=== PATIENT | male | born 1945 | race Caucasian/White ===

== ENCOUNTER → 2016-12-04 | Outpatient (REF) | payer MEDICARE, OTHER ==
[~2016-12-04] MED LIST: ASPI81TAEC PO; CALC1TAB30 PO; KEPP500T6 PO; PRED50TA PO; RAPA8CAP PO
== END ==
LOC: M LAB REF 17:10
PROVIDERS: ATTEND Urology
DX: N40.1 Benign prostatic hyperplasia with lower urinary tract symptoms (principal)

== ENCOUNTER → 2016-12-27 | Outpatient (CLI) | payer MEDICARE, OTHER | LOC: M LAB 13:23 | PROVIDERS: ATTEND Urology | DX: R35.0 Frequency of micturition (principal) ==

== ENCOUNTER → 2017-01-03 | Outpatient (REF) | payer MEDICARE, OTHER ==
[2017-01-03 17:45] LABS: ALBUMIN 3.4 GM/DL (3.2-5.2); ALKALINE PHOSPHATASE 56 U/L (45-117); ALT/SGPT 21 U/L (12-78); ANION GAP 6 MEQ/L (8-16); AST/SGOT 18 U/L (15-37); BILIRUBIN,TOTAL 0.5 MG/DL (0.2-1.0); BLOOD UREA NITROGEN 24 MG/DL (7-18); CALCIUM LEVEL 8.8 MG/DL (8.8-10.2); CARBON DIOXIDE LEVEL 31 MEQ/L (21-32); CHLORIDE LEVEL 108 MEQ/L (98-107); CHOLESTEROL LEVEL 172 MG/DL (<200); CREATININE FOR GFR 1.22 MG/DL (0.70-1.30); GLOMERULAR FILTRATION RATE > 60.0 (>49); GLUCOSE, FASTING 101 MG/DL (80-110); POTASSIUM SERUM 4.5 MEQ/L (3.5-5.1); SODIUM LEVEL 145 MEQ/L (136-145); TOTAL PROTEIN 6.8 GM/DL (6.4-8.2); TRIGLYCERIDES LEVEL 164 MG/DL (<150)
[2017-01-03 18:23] LABS: BASO # 0.1 K/mm3 (0.0-0.2); BASO % 1.7 % (0.0-1.0); EOS # 0.2 K/mm3 (0.0-0.50); EOS % 3.1 % (0.0-3.0); LARGE UNSTAINED CELL # 0.1 K/mm3 (0.0-0.4); LARGE UNSTAINED CELL % 1.3 % (0.0-4.0); LYMPH # 1.2 K/mm3 (1.5-4.5); LYMPH % 19.3 % (24.0-44.0); MEAN CORPUSCULAR HEMOGLOBIN 29.4 pg (27.0-33.0); MEAN CORPUSCULAR HGB CONC 32.8 g/dl (32.0-36.5); MEAN CORPUSCULAR VOLUME 89.7 fl (80.0-96.0); MONO # 0.5 K/mm3 (0.0-0.8); MONO % 8.3 % (0.0-5.0); NEUTROPHILS # 3.8 K/mm3 (1.8-7.7); NEUTROPHILS % 66.2 % (36.0-66.0); PLATELET COUNT, AUTOMATED 197 k/mm3 (150-450); RED CELL DISTRIBUTION WIDTH 13.4 % (11.5-14.5); WHITE BLOOD COUNT 5.7 K/mm3 (4.0-10.0)
== END ==
LOC: M LAB REF 16:19
PROVIDERS: ATTEND Emergency Medicine
DX: R73.01 Impaired fasting glucose (principal); E55.9 Vitamin D deficiency, unspecified; I69.00 Unspecified sequelae of nontraumatic subarachnoid hemorrhage

== ENCOUNTER → 2017-02-19 | Outpatient (REF) | payer MEDICARE, OTHER ==
[2017-02-19 17:29] LABS: BLOOD UREA NITROGEN 28 MG/DL (7-18); CREATININE FOR GFR 1.11 MG/DL (0.70-1.30); GLOMERULAR FILTRATION RATE > 60.0 (>49)
== END ==
LOC: M LAB REF 16:21
PROVIDERS: ATTEND Neurological Surgery
DX: I67.1 Cerebral aneurysm, nonruptured (principal)

== ENCOUNTER 2017-04-04 20:06 | Emergency (ER) | payer MEDICARE, OTHER ==
[~2017-04-04] VITALS: Ht 182.9 cm; Wt 103.5 kg
[~2017-04-04 20:06] MED LIST changes: +KEPP1TAB PO; -KEPP500T6 PO
[2017-04-04 20:07] VITALS: BP 154/88
[2017-04-04 21:09] LABS: INR 1.03
[2017-04-04 21:17] LABS: MEAN CORPUSCULAR HEMOGLOBIN 30.7 pg (27.0-33.0); MEAN CORPUSCULAR VOLUME 90.3 fl (80.0-96.0); RED CELL DISTRIBUTION WIDTH 13.7 % (11.5-14.5); WHITE BLOOD COUNT 7.5 K/mm3 (4.0-10.0)
[2017-04-04 21:28] LABS: ANION GAP 7 MEQ/L (8-16); BLOOD UREA NITROGEN 32 MG/DL (7-18); CALCIUM LEVEL 8.7 MG/DL (8.8-10.2); CARBON DIOXIDE LEVEL 29 MEQ/L (21-32); CHLORIDE LEVEL 109 MEQ/L (98-107); CREATININE FOR GFR 1.09 MG/DL (0.70-1.30); GLOMERULAR FILTRATION RATE > 60.0 (>49); GLUCOSE, FASTING 111 MG/DL (80-110); POTASSIUM SERUM 3.6 MEQ/L (3.5-5.1); SODIUM LEVEL 145 MEQ/L (136-145)
[2017-04-04 21:35] LABS: BANDS 1 % (< 11); EOSINOPHILS 2 % (0-5)
== END 2017-04-04 22:36 | disposition home or self-care (01) ==
LOC: M ED 20:06
DX: S20.229A Contusion of unspecified back wall of thorax, initial encounter (principal); S40.021A Contusion of right upper arm, initial encounter; S40.012A Contusion of left shoulder, initial encounter; X58.XXXA Exposure to other specified factors, initial encounter; Y92.89 Other specified places as the place of occurrence of the external cause; Y93.89 Activity, other specified; Y99.9 Unspecified external cause status

== ENCOUNTER 2017-08-17 13:10 | Emergency (ER) | payer OTHER, MEDICARE ==
[2017-08-17] MEDS ORDERED: ASPI1TAB PO (13:23)
--- NOTE | 2017-08-17 14:11 | REP ---
CT HEAD WITHOUT CONTRAST: HISTORY: Trauma. COMPARISON: 09/07/2009. The patient is status post right frontotemporal parietal cranioplasty. 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 Areas of decreased attenuation are present in the right frontoparietal and left parietal lobes. There is dilatation of the overlying cortical sulci and bodies of the lateral ventricles. This represents encephalomalacia. There is no intraparenchymal hemorrhage or mass. A shunt is present in the left lateral ventricle. There is dilatation of the ventricles and overlying cortical sulci consistent with minimal volume loss. An acute subdural hematoma 6 mm in width is present over the left cerebral hemisphere. A small amount of subarachnoid hemorrhage is present. There is mass effect with very minimal midline shift to the right. There is no fracture. The visualized sinuses are clear. IMPRESSION: 1. 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 2. A shunt is present in the left lateral ventricle. There is no hydrocephalus. 3. There is an acute 6 mm subdural hematoma over the left cerebral hemisphere with minimal midline shift to the right. 4. Small amount of subarachnoid hemorrhage. Results were called to Dr. Gamez at 1:45 pm this date. Signed by Colby Carson MD 08/17/2017 02:14 P
--- NOTE | 2017-08-17 14:16 | REP ---
CT CERVICAL SPINE WITHOUT CONTRAST: HISTORY: Trauma. COMPARISON: 09/07/2009. There is no acute fracture or subluxation. Disc bulges are present at the C3-4 through C5-6 levels. There is minimal narrowing of the spinal canal. Uncinate process and/or facet hypertrophy are present at the C3-4 through C5-6 levels. These findings produce minimal narrowing of neural foramina. The C5-6 intervertebral disc is decreased in height consistent with disc degeneration. IMPRESSION: 1. There is no acute fracture or subluxation. 2. There is cervical spondylosis at the C3-4 through C5-6 levels. Signed by Colby Carson MD 08/17/2017 02:19 P
[2017-08-17 14:19] LABS: BASO # 0.1 10^3/uL (0.0-0.2); BASO % 0.9 % (0.0-1.0); EOS # 0.2 10^3/uL (0.0-0.50); EOS % 2.5 % (0.0-3.0); IMMATURE GRANULOCYTE % 0.5 % (0-0); MEAN CORPUSCULAR HEMOGLOBIN 29.7 pg (27.0-33.0); MEAN CORPUSCULAR HGB CONC 33.3 g/dl (32.0-36.5); MEAN CORPUSCULAR VOLUME 89.1 fl (80.0-96.0); MONO # 0.6 10^3/uL (0.0-0.8); MONO % 8.6 % (0.0-5.0); NEUTROPHILS # 4.6 10^3/uL (1.8-7.7); NEUTROPHILS % 72.5 % (36.0-66.0); PLATELET COUNT, AUTOMATED 218 10^3/uL (150-450); RED CELL DISTRIBUTION WIDTH 13.5 % (11.5-14.5); WHITE BLOOD COUNT 6.4 10^3/uL (4.0-10.0)
[2017-08-17 14:28] LABS: INR 1.05
[2017-08-17 14:40] LABS: ANION GAP 6 MEQ/L (8-16); BLOOD UREA NITROGEN 25 MG/DL (7-18); CALCIUM LEVEL 8.9 MG/DL (8.8-10.2); CARBON DIOXIDE LEVEL 33 MEQ/L (21-32); CHLORIDE LEVEL 106 MEQ/L (98-107); CREATININE FOR GFR 0.97 MG/DL (0.70-1.30); GLOMERULAR FILTRATION RATE > 60.0 (>49); GLUCOSE, FASTING 88 MG/DL (80-110); SODIUM LEVEL 145 MEQ/L (136-145)
--- NOTE | 2017-08-17 14:48 | REP ---
Clinical: Trauma . Comparison: 07/24/2016 . Findings: The mediastinum and cardiac silhouette are stable and within normal limits for portable technique. The lung cardenas are clear without acute consolidation, effusion, or pneumothorax. Skeletal structures are intact. Right-sided ventriculoperitoneal shunt identified. Impression: Limited portable examination. No acute cardiopulmonary process appreciated. Signed by Jac Estes MD 08/17/2017 02:40 P
[2017-08-17 14:55] VITALS: BP 174/92
--- NOTE | 2017-08-19 21:11 | ECGEPIP ---
Stationary ECG Study [facility] - ED Test Date: 2017-08-17 Pat Name: HOLLY ASHLEY Department: Room: - Gender: M [employer] Supervisor: pavel : 1945 Requested By: Benigno Chowdhury Order Number: [id number] Reading MD: Slime Shetty Measurements Intervals [place] Rate: 58 P: 0 IA: 231 QRS: -27 QRSD: 105 T: 8 QT: 441 QTc: 436 Interpretive Statements SINUS BRADYCARDIA WITH FIRST DEGREE AV BLOCK PROBABLE - BASELINE ARTIFACT LIMITS INTERPRETATION BORDERLINE LEFT AXIS DEVIATION MODERATE VOLTAGE CRITERIA FOR LVH, CONSIDER NORMAL VARIANT NO PRIOR FOR COMPARISON Electronically Signed On 08-19-2017 21:11:30 EST by Slime Shetty
== END 2017-08-17 15:01 | disposition short-term general hospital (02) ==
LOC: EDBD 13:10 → M ED 13:10
DX: S06.6X0A Traumatic subarachnoid hemorrhage without loss of consciousness, initial encounter (principal); S06.5X0A Traumatic subdural hemorrhage without loss of consciousness, initial encounter; V49.59XA Passenger injured in collision with other motor vehicles in traffic accident, initial encounter; Y92.410 Unspecified street and highway as the place of occurrence of the external cause; Y93.89 Activity, other specified; Y99.8 Other external cause status; R56.9 Unspecified convulsions; D69.3 Immune thrombocytopenic purpura; Z79.899 Other long term (current) drug therapy; Z79.82 Long term (current) use of aspirin

== ENCOUNTER → 2017-08-30 | Outpatient (RCR) | payer OTHER ==
[~2017-08-30] MED LIST changes: +ASPI1TAB PO
== END ==
LOC: M PT 08-27 11:36
PROVIDERS: ATTEND Emergency Medicine
DX: Z51.89 Encounter for other specified aftercare (principal); M62.81 Muscle weakness (generalized); R26.89 Other abnormalities of gait and mobility

== ENCOUNTER 2017-09-03 14:13 | Outpatient (RCR) | payer OTHER | END 2017-09-30 | LOC: M PT 14:13 → M OT 09-06 13:00 → M PT 09-17 14:14 → M OT 09-19 13:30 | DX: Z51.89 Encounter for other specified aftercare (principal); R26.9 Unspecified abnormalities of gait and mobility | CPT/HCPCS: 97110 ==

== ENCOUNTER 2017-10-03 09:48 | Outpatient (RCR) | payer OTHER | END 2017-10-31 | LOC: M OT 09:48 → M PT 10-15 09:50 → M OT 10-18 10:00 → M PT 10-22 09:49 → M OT 10-24 10:00 → M PT 10-25 10:00 → M OT 10-31 09:50 → M PT 10-15 09:50 → M OT 10-18 10:00 → M PT 10-22 09:49 → M OT 10-24 10:00 → M PT 10-25 10:00 → M OT 10-31 09:50 | DX: Z51.89 Encounter for other specified aftercare (principal); R53.1 Weakness ==

== ENCOUNTER 2017-11-01 09:46 | Outpatient (RCR) | payer OTHER | END 2017-11-28 | LOC: M PT 09:46 → M OT 11-07 09:46 → M PT 11-21 09:23 → M OT 11-07 09:46 → M PT 11-21 09:23 | DX: Z51.89 Encounter for other specified aftercare (principal); R26.81 Unsteadiness on feet | CPT/HCPCS: 97110 ==

== ENCOUNTER 2017-11-29 08:56 | Outpatient (RCR) | payer OTHER | END 2017-12-29 | LOC: M PT 12-03 10:24 | DX: Z51.89 Encounter for other specified aftercare (principal); R26.81 Unsteadiness on feet | CPT/HCPCS: 97010 ==

== ENCOUNTER 2017-12-31 10:36 | Outpatient (RCR) | payer OTHER | END 2018-01-28 | LOC: M PT 10:36 | DX: Z51.89 Encounter for other specified aftercare (principal); R26.81 Unsteadiness on feet | CPT/HCPCS: 97112 ==

== ENCOUNTER → 2018-01-21 | Outpatient (CLI) | payer MEDICARE, OTHER ==
[2018-01-21 09:09] LABS: ANION GAP 6 MEQ/L (8-16); BLOOD UREA NITROGEN 28 MG/DL (7-18); CALCIUM LEVEL 8.5 MG/DL (8.8-10.2); CARBON DIOXIDE LEVEL 31 MEQ/L (21-32); CHLORIDE LEVEL 110 MEQ/L (98-107); CHOLESTEROL LEVEL 161 MG/DL (<200); CHOLESTEROL RISK RATIO 3.285 (<5); CREATININE FOR GFR 1.02 MG/DL (0.70-1.30); GLOMERULAR FILTRATION RATE > 60.0 (>42); GLUCOSE, FASTING 80 MG/DL (70-100); HDL CHOLESTEROL 49 MG/DL (>40); LDL CHOLESTEROL 88.6 MG/DL (<100); NON-HDL-C 112 MG/DL; SODIUM LEVEL 147 MEQ/L (136-145); TRIGLYCERIDES LEVEL 117 MG/DL (<150)
[2018-01-21 11:02] LABS: TOTAL 25(OH) VITAMIN D 30.5 NG/ML (30.0-100.0)
[2018-01-21 11:46] LABS: ESTIMATED AVERAGE GLUCOSE 103 MG/DL (60-110); HEMOGLOBIN A1c 5.2 %
== END ==
LOC: M LAB 08:21
DX: R73.03 Prediabetes (principal); E55.9 Vitamin D deficiency, unspecified; Z79.82 Long term (current) use of aspirin; Z79.899 Other long term (current) drug therapy
CPT/HCPCS: 83036

== ENCOUNTER 2018-01-29 09:44 | Outpatient (RCR) | payer OTHER | END 2018-02-28 | LOC: M PT 02-04 09:15 | DX: Z51.89 Encounter for other specified aftercare (principal); R26.81 Unsteadiness on feet; R53.1 Weakness | CPT/HCPCS: 97110 ==

== ENCOUNTER → 2018-03-18 | Outpatient (CLI) | payer MEDICARE, OTHER ==
[2018-03-18 14:42] LABS: PROSTATIC SPECIFIC AG MONITOR 2.36 NG/ML (< 4.0)
== END ==
LOC: M LAB 13:34
DX: N40.1 Benign prostatic hyperplasia with lower urinary tract symptoms (principal)
CPT/HCPCS: 84153

== ENCOUNTER → 2018-05-02 | Outpatient (CLI) | payer MEDICARE, OTHER ==
[2018-05-02 12:22] LABS: BASO # 0.1 10^3/uL (0.0-0.2); BASO % 0.9 % (0.0-1.0); EOS # 0.2 10^3/uL (0.0-0.50); EOS % 2.4 % (0.0-3.0); HEMATOCRIT 45.3 % (42.0-52.0); IMMATURE GRANULOCYTE % 0.4 % (0-3.0); LYMPH # 1.6 10^3/uL (1.5-4.5); LYMPH % 20.3 % (24.0-44.0); MEAN CORPUSCULAR HGB CONC 33.1 g/dl (32.0-36.5); MEAN CORPUSCULAR VOLUME 90.6 fl (80.0-96.0); MONO # 0.9 10^3/uL (0.0-0.8); MONO % 11.1 % (0.0-5.0); NEUTROPHILS # 5.2 10^3/uL (1.8-7.7); NEUTROPHILS % 64.9 % (36.0-66.0); PLATELET COUNT, AUTOMATED 239 10^3/uL (150-450); RED CELL DISTRIBUTION WIDTH 13.5 % (11.5-14.5); WHITE BLOOD COUNT 7.9 10^3/uL (4.0-10.0)
== END ==
LOC: M LAB 11:14
DX: S06.5X1D Traumatic subdural hemorrhage with loss of consciousness of 30 minutes or less, subsequent encounter (principal); X58.XXXA Exposure to other specified factors, initial encounter; Y92.89 Other specified places as the place of occurrence of the external cause
CPT/HCPCS: 85025

== ENCOUNTER → 2019-02-21 | Outpatient (CLI) | payer MEDICARE, OTHER ==
[~2019-02-21] MED LIST changes: -ASPI1TAB PO; +ASPI81TA26 PO; -RAPA8CAP PO; +RAPA8CAP4 PO
[2019-02-21 12:05] LABS: BLOOD UREA NITROGEN 20 MG/DL (7-18); CREATININE FOR GFR 0.96 MG/DL (0.70-1.30); GLOMERULAR FILTRATION RATE > 60.0 (>42)
== END ==
LOC: M LAB 11:09
PROVIDERS: ATTEND Neurological Surgery
DX: G91.0 Communicating hydrocephalus (principal); I67.1 Cerebral aneurysm, nonruptured

== ENCOUNTER → 2019-03-28 | Outpatient (CLI) | payer MEDICARE, OTHER | LOC: M LRY 08:44 | PROVIDERS: ATTEND Urology | DX: N40.1 Benign prostatic hyperplasia with lower urinary tract symptoms (principal) ==

== ENCOUNTER → 2019-06-30 | Outpatient (CLI) | payer MEDICARE, OTHER ==
[2019-06-30 16:48] LABS: BASO # 0.1 10^3/uL (0.0-0.2); EOS # 0.3 10^3/uL (0.0-0.5); EOS % 3.3 % (0.0-3.0); HEMATOCRIT 47.5 % (42.0-52.0); HEMOGLOBIN 15.4 g/dl (13.5-17.5); LYMPH # 1.7 10^3/uL (1.5-5.0); LYMPH % 20.9 % (24.0-44.0); MEAN CORPUSCULAR HEMOGLOBIN 29.7 pg (27.0-33.0); MEAN CORPUSCULAR HGB CONC 32.4 g/dl (32.0-36.5); MEAN CORPUSCULAR VOLUME 91.5 fl (80.0-96.0); MONO # 0.6 10^3/uL (0.0-0.8); MONO % 7.6 % (0.0-5.0); NEUTROPHILS # 5.3 10^3/uL (1.5-8.5); NEUTROPHILS % 66.9 % (36.0-66.0); PLATELET COUNT, AUTOMATED 263 10^3/uL (150-450); RED BLOOD COUNT 5.19 10^6/uL (4.30-6.10); WHITE BLOOD COUNT 7.9 10^3/uL (4.0-10.0)
[2019-06-30 17:05] LABS: ALBUMIN 3.4 GM/DL (3.2-5.2); ALT/SGPT 20 U/L (12-78); BILIRUBIN,TOTAL 0.2 MG/DL (0.2-1.0); BLOOD UREA NITROGEN 24 MG/DL (7-18); CALCIUM LEVEL 8.7 MG/DL (8.8-10.2); CARBON DIOXIDE LEVEL 33 MEQ/L (21-32); CHLORIDE LEVEL 106 MEQ/L (98-107); CREATININE FOR GFR 1.09 MG/DL (0.70-1.30); GLOMERULAR FILTRATION RATE > 60.0 (>42); GLUCOSE, FASTING 144 MG/DL (70-100); POTASSIUM SERUM 3.9 MEQ/L (3.5-5.1); SODIUM LEVEL 144 MEQ/L (136-145); TOTAL PROTEIN 7.1 GM/DL (6.4-8.2)
== END ==
LOC: M LRY 13:51
PROVIDERS: ATTEND Family Medicine
DX: K62.5 Hemorrhage of anus and rectum (principal)

== ENCOUNTER → 2020-04-06 | Outpatient (CLI) | payer MEDICARE, OTHER ==
[2020-04-09 00:07] LABS: PSA TOTAL 1.6 ng/mL (0.0-4.0)
== END ==
LOC: M LRY 15:35
PROVIDERS: ATTEND Nurse Practitioner Family
DX: N40.1 Benign prostatic hyperplasia with lower urinary tract symptoms (principal)

== ENCOUNTER → 2020-07-06 | Outpatient (CLI) | payer MEDICARE, OTHER ==
[2020-07-06 12:58] LABS: CREATININE FOR GFR 1.09 MG/DL (0.70-1.30); GLOMERULAR FILTRATION RATE > 60.0 (>42)
== END ==
LOC: M WUC 09:02
PROVIDERS: ATTEND Physician Assistant Medical
DX: R26.81 Unsteadiness on feet (principal); I67.1 Cerebral aneurysm, nonruptured; G91.0 Communicating hydrocephalus; R42 Dizziness and giddiness; Z98.2 Presence of cerebrospinal fluid drainage device; Z86.79 Personal history of other diseases of the circulatory system

== ENCOUNTER → 2021-04-21 | Outpatient (CLI) | payer MEDICARE, OTHER ==
[~2021-04-21] MED LIST changes: +ASPI-569 PO; -ASPI81TAEC PO
== END ==
LOC: M WUC 14:13
PROVIDERS: ATTEND Urology
DX: N40.1 Benign prostatic hyperplasia with lower urinary tract symptoms (principal)

== ENCOUNTER → 2021-06-03 | Outpatient (CLI) | payer MEDICARE, OTHER ==
[~2021-06-03] MED LIST changes: +BACL10TA2 PO; +CITA20TA7 PO
== END ==
LOC: M LABSMTC 09:47
PROVIDERS: ATTEND Anesthesiology
DX: Z01.812 Encounter for preprocedural laboratory examination (principal); Z20.822 Contact with and (suspected) exposure to COVID-19

== ENCOUNTER 2021-06-08 12:39 | Day surgery (SDC) | payer MEDICARE, OTHER ==
[~2021-06-08] VITALS: Ht 180.3 cm; Wt 113.4 kg
[~2021-06-08 12:39] MED LIST changes: +LIDOCAINE 2% 100MG/5ML SDV (FOR ANES.) As Ordered ONE; +NS 1,000 ML IV ONE; +propofoL 200 MG/20 ML VIAL As Ordered ONE
--- NOTE | 2021-06-08 14:58 | ROOR ---
Patient Name: Addison Ontiveros Procedure Date: 06/08/2021 1:57 PM Date of : 1945 Age: 75 Room: [facility] Gender: Male Note Status: Finalized Procedure: Colonoscopy Indications: Screening for colorectal malignant neoplasm Providers: Marvin Mceknzie MD Referring MD: Stacie Perkins MD Requesting Provider: Medicines: Monitored Anesthesia Care Complications: No immediate complications. Procedure: Pre-Anesthesia Assessment: - Prior to the procedure, a History and Physical was performed, and patient medications and allergies were reviewed. The patient is competent. The risks and benefits of the procedure and the sedation options and risks were discussed with the patient. All questions were answered and informed consent was obtained. Patient identification and proposed procedure were verified by the physician, the nurse and the anesthesiologist in the endoscopy suite. Mental Status Examination: alert and oriented. Airway Examination: normal oropharyngeal airway and neck mobility. Respiratory Examination: clear to auscultation. CV Examination: normal. Prophylactic Antibiotics: The patient does not require prophylactic antibiotics. Prior Anticoagulants: The patient has taken no previous anticoagulant or antiplatelet agents. ASA Grade Assessment: III - A patient with severe systemic disease. After reviewing the risks and benefits, the patient was deemed in satisfactory condition to undergo the procedure. The anesthesia plan was to use monitored anesthesia care (MAC). Immediately prior to administration of medications, the patient was re-assessed for adequacy to receive sedatives. The heart rate, respiratory rate, oxygen saturations, blood pressure, adequacy of pulmonary ventilation, and response to care were monitored throughout the procedure. The physical status of the patient was re-assessed after the procedure. The Colonoscope was introduced through the anus and advanced to the cecum, identified by appendiceal orifice and ileocecal valve. The colonoscopy was technically difficult and complex due to significant looping. Successful completion of the procedure was aided by applying abdominal pressure. The patient tolerated the procedure fairly well. The quality of the bowel preparation was good. Findings: The perianal and digital rectal examinations were normal. A 5 mm polyp was found in the hepatic flexure. The polyp was sessile. The polyp was removed with a cold snare. Resection and retrieval were complete. Estimated blood loss was minimal. Estimated blood loss was minimal. A 10 mm polyp was found in the ileocecal valve. The polyp was semi-pedunculated. The polyp was removed with a hot snare. Polyp resection was incomplete. The resected tissue was retrieved. Estimated blood loss was minimal. Four sessile polyps were found in the transverse colon. The polyps were 2 to 5 mm in size. These polyps were removed with a hot snare. Resection and retrieval were complete. The retroflexed view of the distal rectum and anal verge was normal and showed no anal or rectal abnormalities. Impression: - One 5 mm polyp at the hepatic flexure, removed with a cold snare. Resected and retrieved. - One 10 mm polyp at the ileocecal valve, removed with a hot snare. Incomplete resection. Resected tissue retrieved. - Four 2 to 5 mm polyps in the transverse colon, removed with a hot snare. Resected and retrieved. - The distal rectum and anal verge are normal on retroflexion view. Recommendation: - Discharge patient to home (ambulatory). Procedure Code(s): --- Professional --- 03929, Colonoscopy, flexible; with removal of tumor(s), polyp(s), or other lesion(s) by snare technique Diagnosis Code(s): --- Professional --- K63.5, Polyp of colon Z12.11, Encounter for screening for malignant neoplasm of colon CPT copyright 2019 [employer]. All rights reserved. The codes documented in this report are preliminary and upon physician coder review may be revised to meet current compliance requirements. Marvin Mckenzie MD Marvin Mckenzie MD 06/08/2021 2:58:12 PM Electronically signed by Marvin Mckenzie MD Number of Addenda: 0 Note Initiated On: 06/08/2021 1:57 PM Estimated Blood Loss: Estimated blood loss was minimal.
[2021-06-08 15:14] VITALS: BP 137/91
== END 2021-06-08 15:16 | disposition home or self-care (01) ==
LOC: M OPP 12:39
PROVIDERS: ATTEND Surgery
DX: Z12.11 Encounter for screening for malignant neoplasm of colon (principal); D12.0 Benign neoplasm of cecum; D12.3 Benign neoplasm of transverse colon; Z79.891 Long term (current) use of opiate analgesic; Z79.899 Other long term (current) drug therapy

== ENCOUNTER → 2021-06-13 | Outpatient (CLI) | payer MEDICARE, OTHER ==
[~2021-06-13] MED LIST changes: -LIDOCAINE 2% 100MG/5ML SDV (FOR ANES.) As Ordered ONE; -NS 1,000 ML IV ONE; -propofoL 200 MG/20 ML VIAL As Ordered ONE
[2021-06-13 12:04] LABS: BASO # 0.1 10^3/uL (0.0-0.2); BASO % 0.9 % (0.0-1.0); EOS # 0.2 10^3/uL (0.0-0.5); EOS % 3.1 % (0.0-3.0); HEMATOCRIT 48.3 % (42.0-52.0); HEMOGLOBIN 15.3 g/dl (13.5-17.5); LYMPH # 1.3 10^3/uL (1.5-5.0); LYMPH % 17.6 % (24.0-44.0); MEAN CORPUSCULAR HEMOGLOBIN 28.3 pg (27.0-33.0); MEAN CORPUSCULAR HGB CONC 31.7 g/dl (32.0-36.5); MEAN CORPUSCULAR VOLUME 89.4 fl (80.0-96.0); MONO # 0.5 10^3/uL (0.0-0.8); MONO % 6.9 % (2.0-8.0); NEUTROPHILS # 5.3 10^3/uL (1.5-8.5); NEUTROPHILS % 71.2 % (36.0-66.0); PLATELET COUNT, AUTOMATED 256 10^3/uL (150-450); WHITE BLOOD COUNT 7.4 10^3/uL (4.0-10.0)
[2021-06-13 16:20] LABS: ALBUMIN 3.2 GM/DL (3.2-5.2); ALT/SGPT 23 U/L (12-78); BILIRUBIN,TOTAL 0.4 MG/DL (0.2-1.0); BLOOD UREA NITROGEN 22 MG/DL (7-18); CARBON DIOXIDE LEVEL 33 MEQ/L (21-32); CHLORIDE LEVEL 107 MEQ/L (98-107); CHOLESTEROL LEVEL 160 MG/DL (<200); CREATININE FOR GFR 0.92 MG/DL (0.70-1.30); GLOMERULAR FILTRATION RATE > 60.0 (>42); GLUCOSE, FASTING 94 MG/DL (70-100); HDL CHOLESTEROL 38 MG/DL (>40); LDL CHOLESTEROL 81 MG/DL (<100); NON-HDL-C 122 MG/DL; POTASSIUM SERUM 4.2 MEQ/L (3.5-5.1); SODIUM LEVEL 143 MEQ/L (136-145); TOTAL PROTEIN 6.9 GM/DL (6.4-8.2); TRIGLYCERIDES LEVEL 207 MG/DL (<150)
[2021-06-13 18:54] LABS: HEMOGLOBIN A1c 5.7 %
== END ==
LOC: M WUC 08:51
PROVIDERS: ATTEND Nurse Practitioner Family
DX: Z00.00 Encounter for general adult medical examination without abnormal findings (principal); R73.03 Prediabetes; E78.00 Pure hypercholesterolemia, unspecified

== ENCOUNTER → 2021-08-08 | Outpatient (CLI) | payer MEDICARE, OTHER ==
[2021-08-08 11:41] LABS: BLOOD UREA NITROGEN 25 MG/DL (7-18); GLOMERULAR FILTRATION RATE > 60.0 (>42)
== END ==
LOC: M WUC 08:52
DX: I67.1 Cerebral aneurysm, nonruptured (principal)

== ENCOUNTER → 2022-04-24 | Outpatient (CLI) | payer MEDICARE, OTHER | LOC: M WUC 08:40 | PROVIDERS: ATTEND Urology | DX: N40.1 Benign prostatic hyperplasia with lower urinary tract symptoms (principal) ==

== ENCOUNTER → 2022-04-24 | Outpatient (CLI) | payer MEDICARE, OTHER ==
[2022-04-24 10:17] LABS: BASO # 0.1 10^3/uL (0.0-0.2); BASO % 0.7 % (0.0-1.0); EOS # 0.3 10^3/uL (0.0-0.5); EOS % 3.6 % (0.0-3.0); HEMATOCRIT 46.9 % (42.0-52.0); LYMPH # 1.3 10^3/uL (1.5-5.0); LYMPH % 17.6 % (24.0-44.0); MEAN CORPUSCULAR HEMOGLOBIN 28.7 pg (27.0-33.0); MEAN CORPUSCULAR VOLUME 89.8 fl (80.0-96.0); MONO # 0.5 10^3/uL (0.0-0.8); MONO % 6.6 % (2.0-8.0); NEUTROPHILS # 5.2 10^3/uL (1.5-8.5); NEUTROPHILS % 71.1 % (36.0-66.0); PLATELET COUNT, AUTOMATED 227 10^3/uL (150-450); RED BLOOD COUNT 5.22 10^6/uL (4.30-6.10); WHITE BLOOD COUNT 7.3 10^3/uL (4.0-10.0)
[2022-04-24 10:47] LABS: HEMOGLOBIN A1c 5.8 %
[2022-04-24 10:49] LABS: ALBUMIN 3.3 GM/DL (3.2-5.2); ALT/SGPT 17 U/L (12-78); BILIRUBIN,TOTAL 0.5 MG/DL (0.2-1.0); BLOOD UREA NITROGEN 23 MG/DL (7-18); CALCIUM LEVEL 8.8 MG/DL (8.8-10.2); CARBON DIOXIDE LEVEL 28 MEQ/L (21-32); CHLORIDE LEVEL 110 MEQ/L (98-107); CHOLESTEROL LEVEL 151 MG/DL (<200); CHOLESTEROL RISK RATIO 3.973 (<5); CREATININE FOR GFR 1.04 MG/DL (0.70-1.30); GLOMERULAR FILTRATION RATE > 60.0 (>42); GLUCOSE, FASTING 132 MG/DL (70-100); HDL CHOLESTEROL 38 MG/DL (>40); LDL CHOLESTEROL 74 MG/DL (<100); NON-HDL-C 113 MG/DL; POTASSIUM SERUM 4.1 MEQ/L (3.5-5.1); SODIUM LEVEL 145 MEQ/L (136-145); TOTAL PROTEIN 6.7 GM/DL (6.4-8.2); TRIGLYCERIDES LEVEL 196 MG/DL (<150)
== END ==
LOC: M WUC 08:37
PROVIDERS: ATTEND Nurse Practitioner Family
DX: Z00.00 Encounter for general adult medical examination without abnormal findings (principal); R73.03 Prediabetes; N40.1 Benign prostatic hyperplasia with lower urinary tract symptoms

== ENCOUNTER → 2022-06-09 | Outpatient (REF) | payer MEDICARE, OTHER | LOC: M LAB REF 15:58 | PROVIDERS: ATTEND Physician Assistant | DX: R30.0 Dysuria (principal) ==

== ENCOUNTER 2023-01-31 12:11 | Observation (INO) | payer MEDICARE, OTHER ==
[~2023-01-31] VITALS: Ht 182.9 cm; Wt 125.9 kg
[2023-01-31] MEDS ORDERED: MORPHINE 2 MG/ML 1ML VIAL IV PRN ×2 (13:55→16:05)
[2023-01-31] MEDS ORDERED: ONDANSETRON 4MG 2ML VIAL IV ONE (13:55)
[2023-01-31 14:19] LABS: BASO # 0.1 10^3/uL (0.0-0.2); BASO % 0.5 % (0.0-1.0); EOS # 0.1 10^3/uL (0.0-0.5); EOS % 0.6 % (0.0-3.0); HEMATOCRIT 47.1 % (42.0-52.0); HEMOGLOBIN 15.2 g/dl (13.5-17.5); LYMPH # 1.6 10^3/uL (1.5-5.0); LYMPH % 11.2 % (24.0-44.0); MEAN CORPUSCULAR HEMOGLOBIN 28.5 pg (27.0-33.0); MEAN CORPUSCULAR HGB CONC 32.3 g/dl (32.0-36.5); MEAN CORPUSCULAR VOLUME 88.4 fl (80.0-96.0); MONO # 0.9 10^3/uL (0.0-0.8); MONO % 6.2 % (2.0-8.0); NEUTROPHILS # 11.3 10^3/uL (1.5-8.5); NEUTROPHILS % 81.1 % (36.0-66.0); PLATELET COUNT, AUTOMATED 249 10^3/uL (150-450); RED BLOOD COUNT 5.33 10^6/uL (4.30-6.10)
[2023-01-31 14:33] LABS: CK-MB VALUE MASS < 1.0 NG/ML (<3.6)
[2023-01-31 14:35] LABS: BLOOD UREA NITROGEN 31 MG/DL (9-23); CALCIUM LEVEL 8.6 MG/DL (8.3-10.6); CARBON DIOXIDE LEVEL 30 MMOL/L (20-31); CHLORIDE LEVEL 105 MMOL/L (98-107); CPK CREATINE PHOSPHOKINASE 53 U/L (46-171); CREATININE FOR GFR 1.06 MG/DL (0.70-1.30); GLOMERULAR FILTRATION RATE > 60.0 (>42); GLUCOSE, FASTING 114 MG/DL (74-106); MB/CK RELATIVE INDEX 1.88 (< OR =4); SODIUM LEVEL 142 MMOL/L (136-145)
[2023-01-31] MEDS ORDERED: LIDOCAINE 2% 100MG/5ML SDV (FOR ANES.) As Ordered ONE (14:57)
[2023-01-31] MEDS ORDERED: propofoL 200 MG/20 ML VIAL As Ordered ONE (14:57)
[2023-01-31] MEDS ORDERED: HOME MED LIST COMPLETE! XX SCH (16:00)
[2023-01-31] MEDS ORDERED: NS 1,000 ML IV SCH (16:05)
[2023-01-31] MEDS ORDERED: fentaNYL 250 MCG/5 ML INJECTION As Ordered ONE (16:20)
[2023-01-31] MEDS ORDERED: ceFAZolin 1GM VIAL As Ordered ONE (16:46)
[2023-01-31] MEDS ORDERED: ceFAZolin 2 GM/D5W 50 ML IV BAG As Ordered ONE (16:47)
[2023-01-31] MEDS ORDERED: PHENYLephrine 500MCG 5ML (100MCG/ML) SYRINGE As Ordered ONE (17:22)
[2023-01-31] MEDS ORDERED: ACETAMINOPHEN 1000MG 100ML IV BAG As Ordered ONE (17:32)
[2023-01-31] MEDS ORDERED: fentaNYL 100 MCG/2 ML INJECTION IV PRN (18:25)
[2023-01-31] MEDS ORDERED: HYDROMORPHONE HCL 0.5 MG/ 0.5 ML SYRINGE IV PRN (18:25)
[2023-01-31] MEDS ORDERED: IBUPROFEN 600MG TAB PO PRN (18:25)
[2023-01-31] MEDS ORDERED: LR 1,000 ML IV SCH (18:25)
[2023-01-31] MEDS ORDERED: ONDANSETRON 4MG 2ML VIAL IV PRN (18:25)
[2023-01-31] MEDS ORDERED: MORPHINE 4 MG/ML 1ML VIAL IV PRN (18:25)
[2023-01-31] MEDS ORDERED: oxyCODONE 5MG TAB PO PRN (18:25)
[2023-01-31 19:43] VITALS: BP 116/69
[2023-01-31 20:15] VITALS: BP 140/87
[2023-01-31] MEDS: BACLOFEN 10 MG TAB PO SCH (20:55)
[2023-01-31] MEDS: levETIRAcetam 250MG TABLET (KEPPRA) PO SCH (20:55)
[2023-01-31] MEDS ORDERED: TAMSULOSIN 0.4 MG CAP PO SCH (21:00)
[2023-01-31 21:19] VITALS: BP 129/82
[2023-01-31 22:05] VITALS: BP 128/81
[2023-01-31 23:05] VITALS: BP 128/82
[2023-02-01 00:17] VITALS: BP 129/79
[2023-02-01] MEDS: MORPHINE 4 MG/ML 1ML VIAL IV PRN ×2 (01:03→10:37)
[2023-02-01] MEDS: ceFAZolin SOD 1 GM in D5W MINI-BAG PLUS 50 ML IV SCH ×2 (01:07→07:56)
[2023-02-01 02:00] VITALS: BP 128/78
[2023-02-01] MEDS: ACETAMINOPHEN TAB 650MG DOSE (2X325MG) PO PRN ×2 (02:03→09:36)
[2023-02-01 06:11] LABS: HEMATOCRIT 37.2 % (42.0-52.0); MEAN CORPUSCULAR HEMOGLOBIN 29.3 pg (27.0-33.0); MEAN CORPUSCULAR HGB CONC 32.3 g/dl (32.0-36.5); PLATELET COUNT, AUTOMATED 212 10^3/uL (150-450); RED BLOOD COUNT 4.09 10^6/uL (4.30-6.10); WHITE BLOOD COUNT 9.4 10^3/uL (4.0-10.0)
[2023-02-01 06:31] VITALS: BP 125/66
[2023-02-01 06:43] LABS: BLOOD UREA NITROGEN 33 MG/DL (9-23); CARBON DIOXIDE LEVEL 30 MMOL/L (20-31); CHLORIDE LEVEL 104 MMOL/L (98-107); CREATININE FOR GFR 1.08 MG/DL (0.70-1.30); GLOMERULAR FILTRATION RATE > 60.0 (>42); GLUCOSE, FASTING 127 MG/DL (74-106); POTASSIUM SERUM 4.3 MMOL/L (3.5-5.1); SODIUM LEVEL 140 MMOL/L (136-145)
[2023-02-01] MEDS: BACLOFEN 10 MG TAB PO SCH (07:56)
[2023-02-01] MEDS: levETIRAcetam 250MG TABLET (KEPPRA) PO SCH (07:56)
[2023-02-01] MEDS ORDERED: CitaloPRAM (CeleXA) 20 MG TAB PO SCH (09:00)
[2023-02-01] MEDS ORDERED: PERCOCET 5MG/325MG TAB PO PRN (11:00)
[2023-02-01] MEDS ORDERED: PERCOCET PO (11:01)
[2023-02-01] MEDS ORDERED: ENOXAPARIN 40MG/0.4ML SYRINGE (J1650 PER 10MG) SC SCH (18:00)
== END 2023-02-01 15:50 ==
LOC: M ED 12:11 → M ED INP 15:42 → M ED 16:19 → M MS5PR 19:30
PROVIDERS: ADMIT Internal Medicine; ATTEND Internal Medicine
DX: S72.141A Displaced intertrochanteric fracture of right femur, initial encounter for closed fracture (principal); W05.0XXA Fall from non-moving wheelchair, initial encounter; Y92.094 Garage of other non-institutional residence as the place of occurrence of the external cause; E66.9 Obesity, unspecified; D72.829 Elevated white blood cell count, unspecified; E78.5 Hyperlipidemia, unspecified; F39 Unspecified mood [affective] disorder; N40.0 Benign prostatic hyperplasia without lower urinary tract symptoms; Z86.69 Personal history of other diseases of the nervous system and sense organs; M54.9 Dorsalgia, unspecified; G89.29 Other chronic pain; Z87.820 Personal history of traumatic brain injury; Z79.899 Other long term (current) drug therapy; Z99.3 Dependence on wheelchair

== ENCOUNTER 2023-02-01 11:38 | Inpatient (IN) | payer MEDICARE, OTHER ==
[~2023-02-01] VITALS: Ht 180.3 cm; Wt 111.9 kg
[~2023-02-01 11:38] MED LIST changes: +PERCOCET PO
[2023-02-01 14:00] VITALS: BP 134/82; TEMP 97.9; O2SAT 95
[2023-02-01] MEDS ORDERED: IBUPROFEN 600MG TAB PO PRN (14:40)
[2023-02-01] MEDS: ACETAMINOPHEN 500 MG TAB PO SCH ×3 (16:00→20:05)
[2023-02-01] MEDS: oxyCODONE 5MG TAB PO PRN (17:37)
[2023-02-01] MEDS: ENOXAPARIN 40MG/0.4ML SYRINGE (J1650 PER 10MG) SC SCH (18:01)
[2023-02-01] MEDS ORDERED: HOME MED LIST COMPLETE! XX SCH (18:55)
[2023-02-01] MEDS ORDERED: ceFAZolin SOD 1 GM in D5W MINI-BAG PLUS 50 ML IV ONE (19:00)
[2023-02-01 20:00] VITALS: BP 102/62; TEMP 97.8; O2SAT 93
[2023-02-01] MEDS: SENNA 8.6 MG TAB (SENOKOT) PO SCH (20:04)
[2023-02-01] MEDS: levETIRAcetam 250MG TABLET (KEPPRA) PO SCH (20:04)
[2023-02-01] MEDS: BACLOFEN 10 MG TAB PO SCH (20:04)
[2023-02-01] MEDS: DOCUSATE SODIUM 100MG CAPSULE PO SCH (20:04)
[2023-02-01] MEDS: TAMSULOSIN 0.4 MG CAP PO SCH (20:04)
[2023-02-02] MEDS: oxyCODONE 5MG TAB PO PRN ×2 (04:28→08:47)
[2023-02-02 04:31] VITALS: BP 127/57; TEMP 97.2; O2SAT 97
[2023-02-02] MEDS: BISACODYL 10MG SUPP PR PRN (06:14)
[2023-02-02 06:37] LABS: BASO % 0.4 % (0.0-1.0); EOS # 0.1 10^3/uL (0.0-0.5); EOS % 1.3 % (0.0-3.0); HEMATOCRIT 33.4 % (42.0-52.0); HEMOGLOBIN 10.7 g/dl (13.5-17.5); LYMPH # 1.3 10^3/uL (1.5-5.0); LYMPH % 12.4 % (24.0-44.0); MEAN CORPUSCULAR HEMOGLOBIN 29.2 pg (27.0-33.0); MONO # 1.4 10^3/uL (0.0-0.8); MONO % 13.1 % (2.0-8.0); NEUTROPHILS # 7.6 10^3/uL (1.5-8.5); NEUTROPHILS % 72.4 % (36.0-66.0); PLATELET COUNT, AUTOMATED 187 10^3/uL (150-450); RED BLOOD COUNT 3.67 10^6/uL (4.30-6.10); WHITE BLOOD COUNT 10.4 10^3/uL (4.0-10.0)
[2023-02-02 07:05] LABS: ALBUMIN 2.9 G/DL (3.2-5.2); ALKALINE PHOSPHATASE 48 U/L (46-116); ALT/SGPT < 9 U/L (7.0-40); AST/SGOT 12 U/L (<34); BILIRUBIN,TOTAL 0.4 MG/DL (0.3-1.2); BLOOD UREA NITROGEN 38 MG/DL (9-23); CALCIUM LEVEL 8.1 MG/DL (8.3-10.6); CARBON DIOXIDE LEVEL 31 MMOL/L (20-31); CHLORIDE LEVEL 102 MMOL/L (98-107); CREATININE FOR GFR 1.16 MG/DL (0.70-1.30); GLOMERULAR FILTRATION RATE > 60.0 (>42); GLUCOSE, FASTING 111 MG/DL (74-106); POTASSIUM SERUM 4.4 MMOL/L (3.5-5.1); SODIUM LEVEL 138 MMOL/L (136-145); TOTAL PROTEIN 5.7 G/DL (5.7-8.2)
[2023-02-02] MEDS: ACETAMINOPHEN 500 MG TAB PO SCH ×3 (08:11→20:28)
[2023-02-02] MEDS: BACLOFEN 10 MG TAB PO SCH ×2 (08:46→20:27)
[2023-02-02] MEDS: DOCUSATE SODIUM 100MG CAPSULE PO SCH ×2 (08:46→20:28)
[2023-02-02] MEDS: CitaloPRAM (CeleXA) 20 MG TAB PO SCH (08:46)
[2023-02-02] MEDS: PANTOPRAZOLE 40MG TAB (PROTONIX) PO SCH (08:46)
[2023-02-02] MEDS: levETIRAcetam 250MG TABLET (KEPPRA) PO SCH ×2 (08:46→20:27)
[2023-02-02] MEDS ORDERED: PERCOCET 5MG/325MG TAB PO PRN (10:10)
[2023-02-02] MEDS ORDERED: GABAPENTIN 100 MG CAP PO SCH (12:10)
[2023-02-02] MEDS ORDERED: PILL CUTTER 1 EACH XX PRN (12:35)
[2023-02-02] MEDS: oxyCODONE 5MG TAB PO SCH (13:01)
[2023-02-02] MEDS: DICLOFENAC EPOLAMINE 1.3% PATCH TOP SCH ×2 (13:01→20:28)
[2023-02-02 14:00] VITALS: BP 128/63; TEMP 97.5; O2SAT 95
[2023-02-02] MEDS: ENOXAPARIN 40MG/0.4ML SYRINGE (J1650 PER 10MG) SC SCH (17:40)
[2023-02-02 20:00] VITALS: BP 119/60; TEMP 98.9; O2SAT 90
[2023-02-02] MEDS: TAMSULOSIN 0.4 MG CAP PO SCH (20:27)
[2023-02-02] MEDS: SENNA 8.6 MG TAB (SENOKOT) PO SCH (20:28)
[2023-02-02] MEDS: GABAPENTIN 300 MG CAP PO SCH (20:28)
[2023-02-03 06:00] VITALS: BP 128/74; TEMP 98.4; O2SAT 94
[2023-02-03] MEDS: oxyCODONE 5MG TAB PO SCH ×2 (06:33→12:17)
[2023-02-03] MEDS: DICLOFENAC EPOLAMINE 1.3% PATCH TOP SCH ×2 (08:21→20:19)
[2023-02-03] MEDS: PANTOPRAZOLE 40MG TAB (PROTONIX) PO SCH (08:22)
[2023-02-03] MEDS: GABAPENTIN 300 MG CAP PO SCH ×3 (08:22→20:19)
[2023-02-03] MEDS: CitaloPRAM (CeleXA) 20 MG TAB PO SCH (08:22)
[2023-02-03] MEDS: levETIRAcetam 250MG TABLET (KEPPRA) PO SCH ×2 (08:22→20:19)
[2023-02-03] MEDS: BACLOFEN 10 MG TAB PO SCH ×2 (08:22→20:19)
[2023-02-03] MEDS: DOCUSATE SODIUM 100MG CAPSULE PO SCH ×2 (08:22→20:19)
[2023-02-03] MEDS: ACETAMINOPHEN 500 MG TAB PO SCH ×3 (08:22→20:20)
[2023-02-03 14:00] VITALS: BP 128/68; TEMP 97.6; O2SAT 94
[2023-02-03] MEDS: AMOXICILLIN 500 MG CAP PO SCH ×2 (17:00→20:19)
[2023-02-03] MEDS: LACTOBACILLUS ACIDOPHILUS CAP (BACID) PO SCH (17:06)
[2023-02-03] MEDS: ENOXAPARIN 40MG/0.4ML SYRINGE (J1650 PER 10MG) SC SCH (17:07)
[2023-02-03 20:00] VITALS: BP 122/65; TEMP 99.2; O2SAT 94
[2023-02-03] MEDS: TAMSULOSIN 0.4 MG CAP PO SCH (20:19)
[2023-02-03] MEDS: SENNA 8.6 MG TAB (SENOKOT) PO SCH (20:19)
[2023-02-04] MEDS: oxyCODONE 5MG TAB PO PRN ×2 (03:39→19:13)
[2023-02-04 06:00] VITALS: BP 120/67; TEMP 98.6; O2SAT 93
[2023-02-04] MEDS: CitaloPRAM (CeleXA) 20 MG TAB PO SCH (08:17)
[2023-02-04] MEDS: AMOXICILLIN 500 MG CAP PO SCH ×4 (08:17→20:35)
[2023-02-04] MEDS: LACTOBACILLUS ACIDOPHILUS CAP (BACID) PO SCH ×2 (08:17→17:41)
[2023-02-04] MEDS: oxyCODONE 5MG TAB PO SCH ×2 (08:17→12:27)
[2023-02-04] MEDS: DICLOFENAC EPOLAMINE 1.3% PATCH TOP SCH ×2 (08:17→20:36)
[2023-02-04] MEDS: ACETAMINOPHEN 500 MG TAB PO SCH ×3 (08:18→20:35)
[2023-02-04] MEDS: PANTOPRAZOLE 40MG TAB (PROTONIX) PO SCH (08:18)
[2023-02-04] MEDS: BACLOFEN 10 MG TAB PO SCH ×2 (08:18→20:35)
[2023-02-04] MEDS: GABAPENTIN 300 MG CAP PO SCH ×3 (08:18→20:35)
[2023-02-04] MEDS: levETIRAcetam 250MG TABLET (KEPPRA) PO SCH ×2 (08:18→20:35)
[2023-02-04] MEDS: DOCUSATE SODIUM 100MG CAPSULE PO SCH ×2 (08:18→20:36)
[2023-02-04] MEDS: BISACODYL 10MG SUPP PR PRN (13:32)
[2023-02-04 14:00] VITALS: BP 125/59; TEMP 98.5; O2SAT 96
[2023-02-04] MEDS: ENOXAPARIN 40MG/0.4ML SYRINGE (J1650 PER 10MG) SC SCH (17:41)
[2023-02-04 20:00] VITALS: BP 124/65; TEMP 98.9; O2SAT 94
[2023-02-04] MEDS: SENNA 8.6 MG TAB (SENOKOT) PO SCH (20:35)
[2023-02-04] MEDS: TAMSULOSIN 0.4 MG CAP PO SCH (20:35)
[2023-02-05 06:00] VITALS: BP 106/59; TEMP 98.2; O2SAT 96
[2023-02-05] MEDS: oxyCODONE 5MG TAB PO SCH ×2 (06:35→11:57)
[2023-02-05 07:13] LABS: BASO # 0.1 10^3/uL (0.0-0.2); BASO % 0.7 % (0.0-1.0); EOS # 0.3 10^3/uL (0.0-0.5); HEMATOCRIT 29.4 % (42.0-52.0); HEMOGLOBIN 9.4 g/dl (13.5-17.5); LYMPH # 1.3 10^3/uL (1.5-5.0); LYMPH % 15.5 % (24.0-44.0); MEAN CORPUSCULAR HEMOGLOBIN 29.4 pg (27.0-33.0); MEAN CORPUSCULAR VOLUME 91.9 fl (80.0-96.0); MONO # 0.9 10^3/uL (0.0-0.8); MONO % 10.8 % (2.0-8.0); NEUTROPHILS # 5.7 10^3/uL (1.5-8.5); PLATELET COUNT, AUTOMATED 270 10^3/uL (150-450); WHITE BLOOD COUNT 8.3 10^3/uL (4.0-10.0)
[2023-02-05 07:54] LABS: BLOOD UREA NITROGEN 27 MG/DL (9-23); CALCIUM LEVEL 8.3 MG/DL (8.3-10.6); CARBON DIOXIDE LEVEL 32 MMOL/L (20-31); CHLORIDE LEVEL 107 MMOL/L (98-107); CREATININE FOR GFR 0.91 MG/DL (0.70-1.30); GLOMERULAR FILTRATION RATE > 60.0 (>42); GLUCOSE, FASTING 95 MG/DL (74-106); POTASSIUM SERUM 4.1 MMOL/L (3.5-5.1); SODIUM LEVEL 141 MMOL/L (136-145)
[2023-02-05] MEDS: LACTOBACILLUS ACIDOPHILUS CAP (BACID) PO SCH ×2 (09:03→17:26)
[2023-02-05] MEDS: PANTOPRAZOLE 40MG TAB (PROTONIX) PO SCH (09:03)
[2023-02-05] MEDS: AMOXICILLIN 500 MG CAP PO SCH ×4 (09:03→21:53)
[2023-02-05] MEDS: levETIRAcetam 250MG TABLET (KEPPRA) PO SCH ×2 (09:03→21:55)
[2023-02-05] MEDS: GABAPENTIN 300 MG CAP PO SCH ×3 (09:03→21:54)
[2023-02-05] MEDS: CitaloPRAM (CeleXA) 20 MG TAB PO SCH (09:04)
[2023-02-05] MEDS: DOCUSATE SODIUM 100MG CAPSULE PO SCH ×2 (09:04→21:55)
[2023-02-05] MEDS: ACETAMINOPHEN 500 MG TAB PO SCH ×3 (09:04→21:54)
[2023-02-05] MEDS: BACLOFEN 10 MG TAB PO SCH ×2 (09:04→21:53)
[2023-02-05] MEDS: DICLOFENAC EPOLAMINE 1.3% PATCH TOP SCH ×2 (09:05→21:57)
[2023-02-05] MEDS: tiZANidine 4 MG TAB PO SCH ×2 (11:57→21:57)
[2023-02-05 14:00] VITALS: BP 135/82; TEMP 98.9; O2SAT 95
[2023-02-05] MEDS: ENOXAPARIN 40MG/0.4ML SYRINGE (J1650 PER 10MG) SC SCH (17:26)
[2023-02-05] MEDS: oxyCODONE 5MG TAB PO PRN (18:29)
[2023-02-05 21:47] VITALS: BP 151/76; TEMP 98.6; O2SAT 92
[2023-02-05] MEDS: TAMSULOSIN 0.4 MG CAP PO SCH (21:54)
[2023-02-05] MEDS: SENNA 8.6 MG TAB (SENOKOT) PO SCH (21:54)
[2023-02-06 00:48] VITALS: O2SAT 96
[2023-02-06] MEDS: oxyCODONE 5MG TAB PO PRN (01:05)
[2023-02-06 06:05] VITALS: BP 132/69; TEMP 97.8; O2SAT 94
[2023-02-06] MEDS: oxyCODONE 5MG TAB PO SCH ×2 (07:14→12:07)
[2023-02-06] MEDS: tiZANidine 4 MG TAB PO SCH ×3 (07:15→20:39)
[2023-02-06] MEDS ORDERED: DANTROLENE 25 MG CAP PO SCH (09:00)
[2023-02-06] MEDS: PANTOPRAZOLE 40MG TAB (PROTONIX) PO SCH (09:11)
[2023-02-06] MEDS: GABAPENTIN 300 MG CAP PO SCH ×3 (09:11→20:38)
[2023-02-06] MEDS: CitaloPRAM (CeleXA) 20 MG TAB PO SCH (09:11)
[2023-02-06] MEDS: LACTOBACILLUS ACIDOPHILUS CAP (BACID) PO SCH ×2 (09:11→17:16)
[2023-02-06] MEDS: DOCUSATE SODIUM 100MG CAPSULE PO SCH ×2 (09:11→20:39)
[2023-02-06] MEDS: levETIRAcetam 250MG TABLET (KEPPRA) PO SCH ×2 (09:11→20:40)
[2023-02-06] MEDS: BACLOFEN 5MG PER 1/2 TABLET PO SCH ×2 (09:12→20:40)
[2023-02-06] MEDS: DICLOFENAC EPOLAMINE 1.3% PATCH TOP SCH ×2 (09:12→20:40)
[2023-02-06] MEDS: AMOXICILLIN 500 MG CAP PO SCH ×4 (09:12→20:37)
[2023-02-06] MEDS: ACETAMINOPHEN 500 MG TAB PO SCH ×3 (09:12→20:40)
[2023-02-06] MEDS: ENOXAPARIN 40MG/0.4ML SYRINGE (J1650 PER 10MG) SC SCH (17:16)
[2023-02-06 19:53] VITALS: BP 136/65; TEMP 98.7; O2SAT 94
[2023-02-06 20:00] VITALS: BP 136/65; TEMP 98.7; O2SAT 94
[2023-02-06] MEDS: TAMSULOSIN 0.4 MG CAP PO SCH (20:37)
[2023-02-06] MEDS: SENNA 8.6 MG TAB (SENOKOT) PO SCH (20:40)
[2023-02-06] MEDS: DANTROLENE 25 MG CAP PO SCH (20:40)
[2023-02-07 06:06] VITALS: BP 123/65; TEMP 97.8; O2SAT 95
[2023-02-07] MEDS: DANTROLENE 25 MG CAP PO SCH ×2 (06:41→20:39)
[2023-02-07] MEDS: oxyCODONE 5MG TAB PO SCH ×2 (06:41→11:58)
[2023-02-07] MEDS: tiZANidine 4 MG TAB PO SCH ×3 (06:42→20:39)
[2023-02-07 07:23] LABS: BASO # 0.1 10^3/uL (0.0-0.2); BASO % 0.7 % (0.0-1.0); EOS # 0.3 10^3/uL (0.0-0.5); EOS % 3.9 % (0.0-3.0); HEMATOCRIT 29.9 % (42.0-52.0); HEMOGLOBIN 9.5 g/dl (13.5-17.5); LYMPH # 1.5 10^3/uL (1.5-5.0); LYMPH % 17.5 % (24.0-44.0); MEAN CORPUSCULAR HEMOGLOBIN 29.3 pg (27.0-33.0); MEAN CORPUSCULAR HGB CONC 31.8 g/dl (32.0-36.5); MEAN CORPUSCULAR VOLUME 92.3 fl (80.0-96.0); MONO # 0.8 10^3/uL (0.0-0.8); MONO % 9.2 % (2.0-8.0); NEUTROPHILS # 5.9 10^3/uL (1.5-8.5); NEUTROPHILS % 67.3 % (36.0-66.0); PLATELET COUNT, AUTOMATED 301 10^3/uL (150-450); RED BLOOD COUNT 3.24 10^6/uL (4.30-6.10); WHITE BLOOD COUNT 8.7 10^3/uL (4.0-10.0)
[2023-02-07 07:55] LABS: BLOOD UREA NITROGEN 29 MG/DL (9-23); CALCIUM LEVEL 7.9 MG/DL (8.3-10.6); CARBON DIOXIDE LEVEL 29 MMOL/L (20-31); CHLORIDE LEVEL 106 MMOL/L (98-107); GLOMERULAR FILTRATION RATE > 60.0 (>42); GLUCOSE, FASTING 97 MG/DL (74-106); POTASSIUM SERUM 4.2 MMOL/L (3.5-5.1); SODIUM LEVEL 142 MMOL/L (136-145)
[2023-02-07] MEDS: levETIRAcetam 250MG TABLET (KEPPRA) PO SCH ×2 (08:51→20:39)
[2023-02-07] MEDS: LACTOBACILLUS ACIDOPHILUS CAP (BACID) PO SCH ×2 (08:51→17:34)
[2023-02-07] MEDS: AMOXICILLIN 500 MG CAP PO SCH ×4 (08:51→20:39)
[2023-02-07] MEDS: DICLOFENAC EPOLAMINE 1.3% PATCH TOP SCH ×2 (08:51→20:40)
[2023-02-07] MEDS: BACLOFEN 5MG PER 1/2 TABLET PO SCH ×2 (08:51→20:39)
[2023-02-07] MEDS: GABAPENTIN 300 MG CAP PO SCH ×3 (08:51→20:39)
[2023-02-07] MEDS: CitaloPRAM (CeleXA) 20 MG TAB PO SCH (08:52)
[2023-02-07] MEDS: ACETAMINOPHEN 500 MG TAB PO SCH ×3 (08:52→20:40)
[2023-02-07] MEDS: DOCUSATE SODIUM 100MG CAPSULE PO SCH ×2 (08:52→20:39)
[2023-02-07] MEDS: PANTOPRAZOLE 40MG TAB (PROTONIX) PO SCH (08:52)
[2023-02-07] MEDS: BISACODYL 10MG SUPP PR PRN (13:53)
[2023-02-07 14:00] VITALS: BP 115/57; TEMP 98.3; O2SAT 100
[2023-02-07] MEDS: ENOXAPARIN 40MG/0.4ML SYRINGE (J1650 PER 10MG) SC SCH (17:33)
[2023-02-07] MEDS: oxyCODONE 5MG TAB PO PRN (17:34)
[2023-02-07 20:00] VITALS: BP 118/64; TEMP 98.7; O2SAT 93
[2023-02-07] MEDS: TAMSULOSIN 0.4 MG CAP PO SCH (20:38)
[2023-02-07] MEDS: SENNA 8.6 MG TAB (SENOKOT) PO SCH (20:40)
[2023-02-08] MEDS: oxyCODONE 5MG TAB PO PRN (05:13)
[2023-02-08 05:22] VITALS: BP 133/70; TEMP 97.8; O2SAT 95
[2023-02-08] MEDS: tiZANidine 4 MG TAB PO SCH ×3 (06:19→19:51)
[2023-02-08] MEDS: DANTROLENE 25 MG CAP PO SCH ×2 (06:20→19:51)
[2023-02-08] MEDS: oxyCODONE 5MG TAB PO SCH ×2 (07:48→12:06)
[2023-02-08] MEDS: LACTOBACILLUS ACIDOPHILUS CAP (BACID) PO SCH ×2 (07:48→17:44)
[2023-02-08] MEDS: AMOXICILLIN 500 MG CAP PO SCH ×4 (07:49→19:51)
[2023-02-08] MEDS: DICLOFENAC EPOLAMINE 1.3% PATCH TOP SCH ×2 (07:49→19:53)
[2023-02-08] MEDS: GABAPENTIN 300 MG CAP PO SCH ×3 (07:50→19:52)
[2023-02-08] MEDS: CitaloPRAM (CeleXA) 20 MG TAB PO SCH (07:50)
[2023-02-08] MEDS: BACLOFEN 5MG PER 1/2 TABLET PO SCH ×2 (07:50→19:51)
[2023-02-08] MEDS: ACETAMINOPHEN 500 MG TAB PO SCH ×3 (07:51→19:52)
[2023-02-08] MEDS: PANTOPRAZOLE 40MG TAB (PROTONIX) PO SCH (07:51)
[2023-02-08] MEDS: DOCUSATE SODIUM 100MG CAPSULE PO SCH ×2 (07:51→19:51)
[2023-02-08] MEDS: levETIRAcetam 250MG TABLET (KEPPRA) PO SCH ×2 (07:52→19:52)
[2023-02-08 14:00] VITALS: BP 110/64; TEMP 97.4; O2SAT 94
[2023-02-08] MEDS: ENOXAPARIN 40MG/0.4ML SYRINGE (J1650 PER 10MG) SC SCH (17:44)
[2023-02-08] MEDS: TAMSULOSIN 0.4 MG CAP PO SCH (19:51)
[2023-02-08] MEDS: SENNA 8.6 MG TAB (SENOKOT) PO SCH (19:52)
[2023-02-08 20:00] VITALS: BP 140/70; TEMP 98.7; O2SAT 94
[2023-02-09] MEDS: oxyCODONE 5MG TAB PO SCH ×3 (05:59→12:21)
[2023-02-09] MEDS: DANTROLENE 25 MG CAP PO SCH ×2 (05:59→20:58)
[2023-02-09] MEDS: tiZANidine 4 MG TAB PO SCH ×3 (05:59→20:57)
[2023-02-09 06:00] VITALS: BP 160/80; TEMP 99.1; O2SAT 93
[2023-02-09 08:11] LABS: BASO % 0.4 % (0.0-1.0); EOS # 0.3 10^3/uL (0.0-0.5); EOS % 3.1 % (0.0-3.0); HEMATOCRIT 32.1 % (42.0-52.0); LYMPH # 1.4 10^3/uL (1.5-5.0); LYMPH % 15.1 % (24.0-44.0); MEAN CORPUSCULAR HEMOGLOBIN 28.8 pg (27.0-33.0); MEAN CORPUSCULAR HGB CONC 31.2 g/dl (32.0-36.5); MEAN CORPUSCULAR VOLUME 92.5 fl (80.0-96.0); MONO # 0.7 10^3/uL (0.0-0.8); MONO % 7.1 % (2.0-8.0); NEUTROPHILS # 6.9 10^3/uL (1.5-8.5); NEUTROPHILS % 73.4 % (36.0-66.0); PLATELET COUNT, AUTOMATED 337 10^3/uL (150-450); RED BLOOD COUNT 3.47 10^6/uL (4.30-6.10); WHITE BLOOD COUNT 9.4 10^3/uL (4.0-10.0)
[2023-02-09 08:46] LABS: BLOOD UREA NITROGEN 32 MG/DL (9-23); CALCIUM LEVEL 7.9 MG/DL (8.3-10.6); CARBON DIOXIDE LEVEL 29 MMOL/L (20-31); CHLORIDE LEVEL 103 MMOL/L (98-107); CREATININE FOR GFR 0.93 MG/DL (0.70-1.30); GLOMERULAR FILTRATION RATE > 60.0 (>42); GLUCOSE, FASTING 144 MG/DL (74-106); POTASSIUM SERUM 4.1 MMOL/L (3.5-5.1); SODIUM LEVEL 140 MMOL/L (136-145)
[2023-02-09] MEDS: GABAPENTIN 300 MG CAP PO SCH ×3 (10:04→20:58)
[2023-02-09] MEDS: PANTOPRAZOLE 40MG TAB (PROTONIX) PO SCH (10:04)
[2023-02-09] MEDS: levETIRAcetam 250MG TABLET (KEPPRA) PO SCH ×2 (10:05→20:57)
[2023-02-09] MEDS: BACLOFEN 5MG PER 1/2 TABLET PO SCH ×2 (10:05→20:56)
[2023-02-09] MEDS: AMOXICILLIN 500 MG CAP PO SCH ×4 (10:05→20:56)
[2023-02-09] MEDS: LACTOBACILLUS ACIDOPHILUS CAP (BACID) PO SCH ×2 (10:05→18:07)
[2023-02-09] MEDS: CitaloPRAM (CeleXA) 20 MG TAB PO SCH (10:05)
[2023-02-09] MEDS: DICLOFENAC EPOLAMINE 1.3% PATCH TOP SCH ×2 (10:06→20:56)
[2023-02-09] MEDS: DOCUSATE SODIUM 100MG CAPSULE PO SCH ×2 (10:09→20:58)
[2023-02-09] MEDS: ACETAMINOPHEN 500 MG TAB PO SCH ×3 (10:09→20:57)
[2023-02-09 14:00] VITALS: BP 110/60; TEMP 97.9; O2SAT 95
[2023-02-09] MEDS: ENOXAPARIN 40MG/0.4ML SYRINGE (J1650 PER 10MG) SC SCH (18:07)
[2023-02-09 19:25] VITALS: BP 113/55; TEMP 98.2; O2SAT 95
[2023-02-09] MEDS: TAMSULOSIN 0.4 MG CAP PO SCH (20:56)
[2023-02-09] MEDS: SENNA 8.6 MG TAB (SENOKOT) PO SCH (20:58)
[2023-02-10 05:09] VITALS: BP 142/78; TEMP 98.2; O2SAT 95
[2023-02-10] MEDS: DANTROLENE 25 MG CAP PO SCH ×2 (06:09→20:06)
[2023-02-10] MEDS: tiZANidine 4 MG TAB PO SCH ×3 (06:10→20:06)
[2023-02-10] MEDS: oxyCODONE 5MG TAB PO SCH ×2 (06:12→12:11)
[2023-02-10] MEDS: DICLOFENAC EPOLAMINE 1.3% PATCH TOP SCH ×2 (07:37→20:07)
[2023-02-10] MEDS: PANTOPRAZOLE 40MG TAB (PROTONIX) PO SCH (07:38)
[2023-02-10] MEDS: BACLOFEN 5MG PER 1/2 TABLET PO SCH ×2 (07:38→20:05)
[2023-02-10] MEDS: LACTOBACILLUS ACIDOPHILUS CAP (BACID) PO SCH ×2 (07:38→17:48)
[2023-02-10] MEDS: levETIRAcetam 250MG TABLET (KEPPRA) PO SCH ×2 (07:38→20:05)
[2023-02-10] MEDS: CitaloPRAM (CeleXA) 20 MG TAB PO SCH (07:38)
[2023-02-10] MEDS: AMOXICILLIN 500 MG CAP PO SCH ×2 (07:38→12:09)
[2023-02-10] MEDS: GABAPENTIN 300 MG CAP PO SCH ×3 (07:38→20:05)
[2023-02-10] MEDS: DOCUSATE SODIUM 100MG CAPSULE PO SCH ×2 (07:38→20:06)
[2023-02-10] MEDS: ACETAMINOPHEN 500 MG TAB PO SCH ×3 (07:39→20:06)
[2023-02-10 14:00] VITALS: BP 123/65; TEMP 97.7; O2SAT 95
[2023-02-10] MEDS: ENOXAPARIN 40MG/0.4ML SYRINGE (J1650 PER 10MG) SC SCH (17:49)
[2023-02-10 20:00] VITALS: BP 113/56; TEMP 97.8; O2SAT 94
[2023-02-10] MEDS: SENNA 8.6 MG TAB (SENOKOT) PO SCH (20:06)
[2023-02-10] MEDS: TAMSULOSIN 0.4 MG CAP PO SCH (20:06)
[2023-02-11 06:00] VITALS: BP 133/68; TEMP 98.1; O2SAT 94
[2023-02-11] MEDS: oxyCODONE 5MG TAB PO SCH ×2 (06:28→11:56)
[2023-02-11] MEDS: DANTROLENE 25 MG CAP PO SCH ×2 (06:29→20:10)
[2023-02-11] MEDS: tiZANidine 4 MG TAB PO SCH ×3 (06:29→20:11)
[2023-02-11] MEDS: LACTOBACILLUS ACIDOPHILUS CAP (BACID) PO SCH ×2 (07:34→17:43)
[2023-02-11] MEDS: CitaloPRAM (CeleXA) 20 MG TAB PO SCH (07:34)
[2023-02-11] MEDS: BACLOFEN 5MG PER 1/2 TABLET PO SCH ×2 (07:35→20:11)
[2023-02-11] MEDS: DOCUSATE SODIUM 100MG CAPSULE PO SCH ×2 (07:35→20:11)
[2023-02-11] MEDS: levETIRAcetam 250MG TABLET (KEPPRA) PO SCH ×2 (07:35→20:11)
[2023-02-11] MEDS: PANTOPRAZOLE 40MG TAB (PROTONIX) PO SCH (07:35)
[2023-02-11] MEDS: ACETAMINOPHEN 500 MG TAB PO SCH ×3 (07:35→20:10)
[2023-02-11] MEDS: GABAPENTIN 300 MG CAP PO SCH ×3 (07:35→20:11)
[2023-02-11] MEDS: DICLOFENAC EPOLAMINE 1.3% PATCH TOP SCH ×2 (07:36→20:12)
[2023-02-11 13:57] VITALS: BP 113/64; TEMP 98; O2SAT 94
[2023-02-11] MEDS: ENOXAPARIN 40MG/0.4ML SYRINGE (J1650 PER 10MG) SC SCH (17:43)
[2023-02-11 20:00] VITALS: BP 122/68; TEMP 97.9; O2SAT 95
[2023-02-11] MEDS: TAMSULOSIN 0.4 MG CAP PO SCH (20:09)
[2023-02-11] MEDS: SENNA 8.6 MG TAB (SENOKOT) PO SCH (20:11)
[2023-02-12] MEDS: oxyCODONE 5MG TAB PO PRN (05:03)
[2023-02-12 06:00] VITALS: BP 125/64; TEMP 97.9; O2SAT 95
[2023-02-12] MEDS: tiZANidine 4 MG TAB PO SCH ×3 (06:05→20:21)
[2023-02-12] MEDS: DANTROLENE 25 MG CAP PO SCH ×2 (06:05→20:20)
[2023-02-12] MEDS: oxyCODONE 5MG TAB PO SCH ×2 (07:00→11:25)
[2023-02-12 07:13] LABS: BASO # 0.1 10^3/uL (0.0-0.2); BASO % 0.7 % (0.0-1.0); EOS # 0.3 10^3/uL (0.0-0.5); EOS % 3.2 % (0.0-3.0); HEMATOCRIT 34.7 % (42.0-52.0); HEMOGLOBIN 10.8 g/dl (13.5-17.5); LYMPH # 1.6 10^3/uL (1.5-5.0); LYMPH % 18.8 % (24.0-44.0); MEAN CORPUSCULAR HEMOGLOBIN 29.3 pg (27.0-33.0); MEAN CORPUSCULAR HGB CONC 31.1 g/dl (32.0-36.5); MEAN CORPUSCULAR VOLUME 94.3 fl (80.0-96.0); MONO # 0.8 10^3/uL (0.0-0.8); MONO % 8.8 % (2.0-8.0); NEUTROPHILS # 5.9 10^3/uL (1.5-8.5); NEUTROPHILS % 67.7 % (36.0-66.0); PLATELET COUNT, AUTOMATED 331 10^3/uL (150-450); RED BLOOD COUNT 3.68 10^6/uL (4.30-6.10); WHITE BLOOD COUNT 8.7 10^3/uL (4.0-10.0)
[2023-02-12 07:50] LABS: ALBUMIN 2.7 G/DL (3.2-5.2); ALKALINE PHOSPHATASE 59 U/L (46-116); ALT/SGPT 16 U/L (7.0-40); AST/SGOT 17 U/L (<34); BILIRUBIN,TOTAL 0.6 MG/DL (0.3-1.2); BLOOD UREA NITROGEN 35 MG/DL (9-23); CALCIUM LEVEL 8.5 MG/DL (8.3-10.6); CARBON DIOXIDE LEVEL 27 MMOL/L (20-31); CHLORIDE LEVEL 109 MMOL/L (98-107); CREATININE FOR GFR 0.86 MG/DL (0.70-1.30); GLOMERULAR FILTRATION RATE > 60.0 (>42); GLUCOSE, FASTING 109 MG/DL (74-106); POTASSIUM SERUM 4.3 MMOL/L (3.5-5.1); SODIUM LEVEL 143 MMOL/L (136-145); TOTAL PROTEIN 5.7 G/DL (5.7-8.2)
[2023-02-12] MEDS: GABAPENTIN 300 MG CAP PO SCH ×3 (09:32→20:21)
[2023-02-12] MEDS: PANTOPRAZOLE 40MG TAB (PROTONIX) PO SCH (09:32)
[2023-02-12] MEDS: CitaloPRAM (CeleXA) 20 MG TAB PO SCH (09:32)
[2023-02-12] MEDS: LACTOBACILLUS ACIDOPHILUS CAP (BACID) PO SCH ×2 (09:32→17:29)
[2023-02-12] MEDS: levETIRAcetam 250MG TABLET (KEPPRA) PO SCH ×2 (09:32→20:21)
[2023-02-12] MEDS: DOCUSATE SODIUM 100MG CAPSULE PO SCH ×2 (09:33→20:11)
[2023-02-12] MEDS: ACETAMINOPHEN 500 MG TAB PO SCH ×3 (09:33→20:21)
[2023-02-12] MEDS: DICLOFENAC EPOLAMINE 1.3% PATCH TOP SCH ×2 (09:33→20:21)
[2023-02-12] MEDS: BACLOFEN 5MG PER 1/2 TABLET PO SCH ×2 (09:33→20:20)
[2023-02-12 14:00] VITALS: BP 109/55; TEMP 97.3; O2SAT 94
[2023-02-12] MEDS: ENOXAPARIN 40MG/0.4ML SYRINGE (J1650 PER 10MG) SC SCH (17:29)
[2023-02-12 20:00] VITALS: BP 122/58; TEMP 97.4; O2SAT 95
[2023-02-12] MEDS: SENNA 8.6 MG TAB (SENOKOT) PO SCH (20:11)
[2023-02-12] MEDS: TAMSULOSIN 0.4 MG CAP PO SCH (20:20)
[2023-02-13 06:00] VITALS: BP_SYST 137; BP_DIAS 72; BP_DIAS 85; TEMP 98.1; O2SAT 95
[2023-02-13] MEDS: tiZANidine 4 MG TAB PO SCH ×3 (06:07→20:28)
[2023-02-13] MEDS: DANTROLENE 25 MG CAP PO SCH ×2 (06:07→20:28)
[2023-02-13] MEDS: oxyCODONE 5MG TAB PO SCH ×2 (06:08→12:07)
[2023-02-13] MEDS: GABAPENTIN 300 MG CAP PO SCH ×3 (08:24→20:27)
[2023-02-13] MEDS: DOCUSATE SODIUM 100MG CAPSULE PO SCH ×2 (08:24→20:30)
[2023-02-13] MEDS: BACLOFEN 5MG PER 1/2 TABLET PO SCH ×2 (08:24→20:28)
[2023-02-13] MEDS: ACETAMINOPHEN 500 MG TAB PO SCH ×3 (08:24→20:28)
[2023-02-13] MEDS: CitaloPRAM (CeleXA) 20 MG TAB PO SCH (08:24)
[2023-02-13] MEDS: PANTOPRAZOLE 40MG TAB (PROTONIX) PO SCH (08:24)
[2023-02-13] MEDS: DICLOFENAC EPOLAMINE 1.3% PATCH TOP SCH ×2 (08:24→20:27)
[2023-02-13] MEDS: LACTOBACILLUS ACIDOPHILUS CAP (BACID) PO SCH ×2 (08:24→17:24)
[2023-02-13] MEDS: levETIRAcetam 250MG TABLET (KEPPRA) PO SCH ×2 (08:24→20:27)
[2023-02-13 14:00] VITALS: BP 115/71; TEMP 97.5; O2SAT 95
[2023-02-13] MEDS: ENOXAPARIN 40MG/0.4ML SYRINGE (J1650 PER 10MG) SC SCH (17:25)
[2023-02-13] MEDS: oxyCODONE 5MG TAB PO PRN (18:30)
[2023-02-13 20:00] VITALS: BP 151/72; TEMP 98.4; O2SAT 95
[2023-02-13] MEDS: TAMSULOSIN 0.4 MG CAP PO SCH (20:28)
[2023-02-13] MEDS: SENNA 8.6 MG TAB (SENOKOT) PO SCH (20:28)
[2023-02-14 06:00] VITALS: BP 155/69; TEMP 97.7; O2SAT 98
[2023-02-14] MEDS: oxyCODONE 5MG TAB PO SCH ×2 (06:02→12:18)
[2023-02-14] MEDS: DANTROLENE 25 MG CAP PO SCH ×2 (06:02→21:39)
[2023-02-14] MEDS: tiZANidine 4 MG TAB PO SCH ×3 (06:02→21:40)
[2023-02-14] MEDS: ACETAMINOPHEN 500 MG TAB PO SCH ×3 (08:54→21:41)
[2023-02-14] MEDS: CitaloPRAM (CeleXA) 20 MG TAB PO SCH (08:54)
[2023-02-14] MEDS: GABAPENTIN 300 MG CAP PO SCH ×3 (08:54→21:39)
[2023-02-14] MEDS: LACTOBACILLUS ACIDOPHILUS CAP (BACID) PO SCH ×2 (08:54→17:33)
[2023-02-14] MEDS: BACLOFEN 5MG PER 1/2 TABLET PO SCH ×2 (08:54→21:40)
[2023-02-14] MEDS: levETIRAcetam 250MG TABLET (KEPPRA) PO SCH ×2 (08:55→21:40)
[2023-02-14] MEDS: DOCUSATE SODIUM 100MG CAPSULE PO SCH ×2 (08:55→21:39)
[2023-02-14] MEDS: DICLOFENAC EPOLAMINE 1.3% PATCH TOP SCH ×2 (08:55→21:39)
[2023-02-14] MEDS: PANTOPRAZOLE 40MG TAB (PROTONIX) PO SCH (08:55)
[2023-02-14 11:00] LABS: BASO # 0.1 10^3/uL (0.0-0.2); BASO % 0.7 % (0.0-1.0); EOS # 0.3 10^3/uL (0.0-0.5); EOS % 3.9 % (0.0-3.0); HEMATOCRIT 34.4 % (42.0-52.0); HEMOGLOBIN 10.7 g/dl (13.5-17.5); LYMPH # 1.4 10^3/uL (1.5-5.0); LYMPH % 18.2 % (24.0-44.0); MEAN CORPUSCULAR HEMOGLOBIN 29.4 pg (27.0-33.0); MEAN CORPUSCULAR HGB CONC 31.1 g/dl (32.0-36.5); MEAN CORPUSCULAR VOLUME 94.5 fl (80.0-96.0); MONO # 0.6 10^3/uL (0.0-0.8); MONO % 8.6 % (2.0-8.0); NEUTROPHILS # 5.1 10^3/uL (1.5-8.5); NEUTROPHILS % 67.9 % (36.0-66.0); PLATELET COUNT, AUTOMATED 325 10^3/uL (150-450); RED BLOOD COUNT 3.64 10^6/uL (4.30-6.10); WHITE BLOOD COUNT 7.4 10^3/uL (4.0-10.0)
[2023-02-14 11:32] LABS: BLOOD UREA NITROGEN 29 MG/DL (9-23); CALCIUM LEVEL 7.8 MG/DL (8.3-10.6); CARBON DIOXIDE LEVEL 29 MMOL/L (20-31); CHLORIDE LEVEL 108 MMOL/L (98-107); CREATININE FOR GFR 0.95 MG/DL (0.70-1.30); GLOMERULAR FILTRATION RATE > 60.0 (>42); GLUCOSE, FASTING 94 MG/DL (74-106); POTASSIUM SERUM 4.2 MMOL/L (3.5-5.1); SODIUM LEVEL 141 MMOL/L (136-145)
[2023-02-14 14:00] VITALS: BP 124/61; TEMP 97.3; O2SAT 95
[2023-02-14] MEDS: ENOXAPARIN 40MG/0.4ML SYRINGE (J1650 PER 10MG) SC SCH (17:33)
[2023-02-14 20:00] VITALS: BP 139/71; TEMP 97.9; O2SAT 94
[2023-02-14] MEDS: SENNA 8.6 MG TAB (SENOKOT) PO SCH (21:40)
[2023-02-14] MEDS: TAMSULOSIN 0.4 MG CAP PO SCH (21:40)
[2023-02-15] MEDS: oxyCODONE 5MG TAB PO PRN (00:03)
[2023-02-15] MEDS: DANTROLENE 25 MG CAP PO SCH ×2 (05:58→21:22)
[2023-02-15] MEDS: tiZANidine 4 MG TAB PO SCH ×3 (05:58→21:22)
[2023-02-15] MEDS: oxyCODONE 5MG TAB PO SCH ×2 (05:59→12:24)
[2023-02-15 06:00] VITALS: BP 148/71; TEMP 98.2; O2SAT 96
[2023-02-15] MEDS: DOCUSATE SODIUM 100MG CAPSULE PO SCH ×2 (09:01→21:00)
[2023-02-15] MEDS: ACETAMINOPHEN 500 MG TAB PO SCH ×3 (09:01→21:21)
[2023-02-15] MEDS: DICLOFENAC EPOLAMINE 1.3% PATCH TOP SCH ×2 (09:01→21:23)
[2023-02-15] MEDS: BACLOFEN 5MG PER 1/2 TABLET PO SCH ×2 (09:01→21:22)
[2023-02-15] MEDS: levETIRAcetam 250MG TABLET (KEPPRA) PO SCH ×2 (09:01→21:22)
[2023-02-15] MEDS: GABAPENTIN 300 MG CAP PO SCH ×3 (09:01→21:22)
[2023-02-15] MEDS: LACTOBACILLUS ACIDOPHILUS CAP (BACID) PO SCH ×2 (09:01→17:53)
[2023-02-15] MEDS: PANTOPRAZOLE 40MG TAB (PROTONIX) PO SCH (09:01)
[2023-02-15] MEDS: CitaloPRAM (CeleXA) 20 MG TAB PO SCH (09:01)
[2023-02-15] MEDS: BISACODYL 10MG SUPP PR PRN (09:04)
[2023-02-15 14:00] VITALS: BP 106/56; TEMP 98; O2SAT 95
[2023-02-15] MEDS: ENOXAPARIN 40MG/0.4ML SYRINGE (J1650 PER 10MG) SC SCH (17:54)
[2023-02-15 20:00] VITALS: BP 118/65; TEMP 97.9; O2SAT 94
[2023-02-15] MEDS: SENNA 8.6 MG TAB (SENOKOT) PO SCH (21:22)
[2023-02-15] MEDS: TAMSULOSIN 0.4 MG CAP PO SCH (21:22)
[2023-02-16] MEDS: tiZANidine 4 MG TAB PO SCH ×3 (06:12→21:07)
[2023-02-16] MEDS: DANTROLENE 25 MG CAP PO SCH ×2 (06:12→21:07)
[2023-02-16] MEDS: oxyCODONE 5MG TAB PO SCH ×2 (06:13→12:14)
[2023-02-16] MEDS: BACLOFEN 5MG PER 1/2 TABLET PO SCH ×2 (08:34→21:08)
[2023-02-16] MEDS: GABAPENTIN 300 MG CAP PO SCH ×3 (08:34→21:07)
[2023-02-16] MEDS: CitaloPRAM (CeleXA) 20 MG TAB PO SCH (08:34)
[2023-02-16] MEDS: LACTOBACILLUS ACIDOPHILUS CAP (BACID) PO SCH ×2 (08:34→17:28)
[2023-02-16] MEDS: PANTOPRAZOLE 40MG TAB (PROTONIX) PO SCH (08:34)
[2023-02-16] MEDS: levETIRAcetam 250MG TABLET (KEPPRA) PO SCH ×2 (08:34→21:08)
[2023-02-16] MEDS: ACETAMINOPHEN 500 MG TAB PO SCH ×3 (08:34→21:08)
[2023-02-16] MEDS: DOCUSATE SODIUM 100MG CAPSULE PO SCH ×2 (08:34→21:07)
[2023-02-16] MEDS: DICLOFENAC EPOLAMINE 1.3% PATCH TOP SCH ×2 (08:35→21:08)
[2023-02-16 10:39] LABS: BASO # 0.1 10^3/uL (0.0-0.2); BASO % 0.9 % (0.0-1.0); EOS # 0.2 10^3/uL (0.0-0.5); EOS % 3.7 % (0.0-3.0); HEMATOCRIT 34.5 % (42.0-52.0); HEMOGLOBIN 10.7 g/dl (13.5-17.5); LYMPH # 1.5 10^3/uL (1.5-5.0); LYMPH % 22.7 % (24.0-44.0); MEAN CORPUSCULAR HEMOGLOBIN 29.2 pg (27.0-33.0); MEAN CORPUSCULAR VOLUME 94.3 fl (80.0-96.0); MONO # 0.6 10^3/uL (0.0-0.8); MONO % 8.8 % (2.0-8.0); NEUTROPHILS # 4.2 10^3/uL (1.5-8.5); NEUTROPHILS % 63.4 % (36.0-66.0); PLATELET COUNT, AUTOMATED 307 10^3/uL (150-450); RED BLOOD COUNT 3.66 10^6/uL (4.30-6.10); WHITE BLOOD COUNT 6.6 10^3/uL (4.0-10.0)
[2023-02-16 11:16] LABS: BLOOD UREA NITROGEN 29 MG/DL (9-23); CALCIUM LEVEL 8.4 MG/DL (8.3-10.6); CARBON DIOXIDE LEVEL 30 MMOL/L (20-31); CHLORIDE LEVEL 107 MMOL/L (98-107); GLOMERULAR FILTRATION RATE > 60.0 (>42); GLUCOSE, FASTING 82 MG/DL (74-106); POTASSIUM SERUM 4.2 MMOL/L (3.5-5.1); SODIUM LEVEL 142 MMOL/L (136-145)
[2023-02-16] MEDS: ENOXAPARIN 40MG/0.4ML SYRINGE (J1650 PER 10MG) SC SCH (17:28)
[2023-02-16 18:35] VITALS: BP 118/63; TEMP 97.7; O2SAT 95
[2023-02-16 20:00] VITALS: BP 125/72; TEMP 98.2; O2SAT 95
[2023-02-16] MEDS: SENNA 8.6 MG TAB (SENOKOT) PO SCH (21:07)
[2023-02-16] MEDS: TAMSULOSIN 0.4 MG CAP PO SCH (21:08)
[2023-02-17 06:00] VITALS: BP 142/80; TEMP 98.7; O2SAT 93
[2023-02-17] MEDS: DANTROLENE 25 MG CAP PO SCH ×2 (06:32→20:25)
[2023-02-17] MEDS: oxyCODONE 5MG TAB PO SCH ×2 (06:32→12:33)
[2023-02-17] MEDS: tiZANidine 4 MG TAB PO SCH ×3 (06:33→20:26)
[2023-02-17] MEDS: CitaloPRAM (CeleXA) 20 MG TAB PO SCH (09:54)
[2023-02-17] MEDS: LACTOBACILLUS ACIDOPHILUS CAP (BACID) PO SCH ×2 (09:54→18:00)
[2023-02-17] MEDS: DOCUSATE SODIUM 100MG CAPSULE PO SCH ×2 (09:54→20:25)
[2023-02-17] MEDS: ACETAMINOPHEN 500 MG TAB PO SCH ×3 (09:55→20:25)
[2023-02-17] MEDS: levETIRAcetam 250MG TABLET (KEPPRA) PO SCH ×2 (09:55→20:25)
[2023-02-17] MEDS: BACLOFEN 5MG PER 1/2 TABLET PO SCH ×2 (09:55→20:25)
[2023-02-17] MEDS: PANTOPRAZOLE 40MG TAB (PROTONIX) PO SCH (09:55)
[2023-02-17] MEDS: GABAPENTIN 300 MG CAP PO SCH ×3 (09:55→20:25)
[2023-02-17] MEDS: DICLOFENAC EPOLAMINE 1.3% PATCH TOP SCH ×2 (09:55→20:26)
[2023-02-17 14:00] VITALS: BP 106/66; TEMP 97.8; O2SAT 94
[2023-02-17] MEDS: ENOXAPARIN 40MG/0.4ML SYRINGE (J1650 PER 10MG) SC SCH (18:00)
[2023-02-17 20:00] VITALS: BP 152/73; TEMP 98.2; O2SAT 95
[2023-02-17] MEDS: TAMSULOSIN 0.4 MG CAP PO SCH (20:25)
[2023-02-17] MEDS: SENNA 8.6 MG TAB (SENOKOT) PO SCH (20:25)
[2023-02-18 06:00] VITALS: BP 145/74; TEMP 98.4; O2SAT 97
[2023-02-18] MEDS: oxyCODONE 5MG TAB PO SCH ×2 (06:07→11:55)
[2023-02-18] MEDS: DANTROLENE 25 MG CAP PO SCH ×2 (06:07→20:14)
[2023-02-18] MEDS: tiZANidine 4 MG TAB PO SCH ×3 (06:07→20:14)
[2023-02-18] MEDS: LACTOBACILLUS ACIDOPHILUS CAP (BACID) PO SCH ×2 (08:46→17:17)
[2023-02-18] MEDS: DICLOFENAC EPOLAMINE 1.3% PATCH TOP SCH ×2 (08:46→20:15)
[2023-02-18] MEDS: DOCUSATE SODIUM 100MG CAPSULE PO SCH ×2 (08:47→20:14)
[2023-02-18] MEDS: BACLOFEN 5MG PER 1/2 TABLET PO SCH ×2 (08:47→20:14)
[2023-02-18] MEDS: levETIRAcetam 250MG TABLET (KEPPRA) PO SCH ×2 (08:47→20:14)
[2023-02-18] MEDS: GABAPENTIN 300 MG CAP PO SCH ×3 (08:47→20:13)
[2023-02-18] MEDS: CitaloPRAM (CeleXA) 20 MG TAB PO SCH (08:47)
[2023-02-18] MEDS: PANTOPRAZOLE 40MG TAB (PROTONIX) PO SCH (08:48)
[2023-02-18] MEDS: ACETAMINOPHEN 500 MG TAB PO SCH ×3 (08:48→20:14)
[2023-02-18 14:00] VITALS: BP 150/75; TEMP 98.1; O2SAT 95
[2023-02-18] MEDS: ENOXAPARIN 40MG/0.4ML SYRINGE (J1650 PER 10MG) SC SCH (17:17)
[2023-02-18 20:00] VITALS: BP 114/58; TEMP 97.6; O2SAT 94
[2023-02-18] MEDS: SENNA 8.6 MG TAB (SENOKOT) PO SCH (20:14)
[2023-02-18] MEDS: TAMSULOSIN 0.4 MG CAP PO SCH (20:14)
[2023-02-19 05:36] VITALS: BP 153/74; TEMP 97.6; O2SAT 98
[2023-02-19] MEDS: tiZANidine 4 MG TAB PO SCH ×3 (06:33→20:05)
[2023-02-19] MEDS: DANTROLENE 25 MG CAP PO SCH ×3 (06:33→20:04)
[2023-02-19] MEDS: oxyCODONE 5MG TAB PO SCH ×2 (06:34→12:07)
[2023-02-19] MEDS: levETIRAcetam 250MG TABLET (KEPPRA) PO SCH ×2 (07:40→20:04)
[2023-02-19] MEDS: LACTOBACILLUS ACIDOPHILUS CAP (BACID) PO SCH ×2 (07:40→17:56)
[2023-02-19] MEDS: PANTOPRAZOLE 40MG TAB (PROTONIX) PO SCH (07:40)
[2023-02-19] MEDS: GABAPENTIN 300 MG CAP PO SCH ×3 (07:40→20:05)
[2023-02-19] MEDS: DICLOFENAC EPOLAMINE 1.3% PATCH TOP SCH ×2 (07:41→20:06)
[2023-02-19] MEDS: BACLOFEN 5MG PER 1/2 TABLET PO SCH (07:41)
[2023-02-19] MEDS: CitaloPRAM (CeleXA) 20 MG TAB PO SCH (07:41)
[2023-02-19] MEDS: ACETAMINOPHEN 500 MG TAB PO SCH ×3 (07:41→20:04)
[2023-02-19] MEDS: DOCUSATE SODIUM 100MG CAPSULE PO SCH ×2 (07:41→20:04)
[2023-02-19 10:46] LABS: BASO # 0.1 10^3/uL (0.0-0.2); BASO % 1.1 % (0.0-1.0); EOS # 0.3 10^3/uL (0.0-0.5); HEMATOCRIT 36.2 % (42.0-52.0); HEMOGLOBIN 11.3 g/dl (13.5-17.5); LYMPH # 1.6 10^3/uL (1.5-5.0); LYMPH % 24.8 % (24.0-44.0); MEAN CORPUSCULAR HEMOGLOBIN 29.4 pg (27.0-33.0); MEAN CORPUSCULAR HGB CONC 31.2 g/dl (32.0-36.5); MONO # 0.7 10^3/uL (0.0-0.8); MONO % 10.3 % (2.0-8.0); NEUTROPHILS # 3.8 10^3/uL (1.5-8.5); NEUTROPHILS % 59.3 % (36.0-66.0); PLATELET COUNT, AUTOMATED 278 10^3/uL (150-450); RED BLOOD COUNT 3.85 10^6/uL (4.30-6.10); WHITE BLOOD COUNT 6.4 10^3/uL (4.0-10.0)
[2023-02-19 11:21] LABS: ALBUMIN 2.8 G/DL (3.2-5.2); ALKALINE PHOSPHATASE 88 U/L (46-116); ALT/SGPT 17 U/L (7.0-40); AST/SGOT 15 U/L (<34); BILIRUBIN,TOTAL 0.4 MG/DL (0.3-1.2); BLOOD UREA NITROGEN 30 MG/DL (9-23); CALCIUM LEVEL 8.4 MG/DL (8.3-10.6); CARBON DIOXIDE LEVEL 30 MMOL/L (20-31); CHLORIDE LEVEL 107 MMOL/L (98-107); CREATININE FOR GFR 0.97 MG/DL (0.70-1.30); GLOMERULAR FILTRATION RATE > 60.0 (>42); GLUCOSE, FASTING 74 MG/DL (74-106); POTASSIUM SERUM 4.3 MMOL/L (3.5-5.1); SODIUM LEVEL 141 MMOL/L (136-145); TOTAL PROTEIN 5.9 G/DL (5.7-8.2)
[2023-02-19 14:00] VITALS: BP 106/59; TEMP 97; O2SAT 99
[2023-02-19] MEDS: ENOXAPARIN 40MG/0.4ML SYRINGE (J1650 PER 10MG) SC SCH (17:56)
[2023-02-19 19:01] VITALS: BP 125/70; TEMP 98.3; O2SAT 94
[2023-02-19] MEDS: TAMSULOSIN 0.4 MG CAP PO SCH (20:04)
[2023-02-19] MEDS: SENNA 8.6 MG TAB (SENOKOT) PO SCH (20:04)
[2023-02-20] MEDS: oxyCODONE 5MG TAB PO PRN (00:05)
[2023-02-20 06:31] VITALS: BP 146/72; TEMP 97.5; O2SAT 94
[2023-02-20] MEDS: oxyCODONE 5MG TAB PO SCH ×2 (06:48→12:19)
[2023-02-20] MEDS: DANTROLENE 25 MG CAP PO SCH ×3 (06:48→20:44)
[2023-02-20] MEDS: tiZANidine 4 MG TAB PO SCH ×3 (06:48→20:43)
[2023-02-20] MEDS: levETIRAcetam 250MG TABLET (KEPPRA) PO SCH ×2 (08:26→20:44)
[2023-02-20] MEDS: LACTOBACILLUS ACIDOPHILUS CAP (BACID) PO SCH ×2 (08:26→18:33)
[2023-02-20] MEDS: PANTOPRAZOLE 40MG TAB (PROTONIX) PO SCH (08:26)
[2023-02-20] MEDS: GABAPENTIN 300 MG CAP PO SCH ×3 (08:26→20:44)
[2023-02-20] MEDS: CitaloPRAM (CeleXA) 20 MG TAB PO SCH (08:26)
[2023-02-20] MEDS: DOCUSATE SODIUM 100MG CAPSULE PO SCH ×2 (08:26→20:43)
[2023-02-20] MEDS: DICLOFENAC EPOLAMINE 1.3% PATCH TOP SCH ×2 (08:27→20:43)
[2023-02-20] MEDS: ACETAMINOPHEN 500 MG TAB PO SCH ×3 (08:27→20:43)
[2023-02-20] MEDS: ENOXAPARIN 40MG/0.4ML SYRINGE (J1650 PER 10MG) SC SCH (18:33)
[2023-02-20 20:00] VITALS: BP 141/75; TEMP 98; O2SAT 95
[2023-02-20] MEDS: SENNA 8.6 MG TAB (SENOKOT) PO SCH (20:43)
[2023-02-20] MEDS: TAMSULOSIN 0.4 MG CAP PO SCH (20:44)
[2023-02-21 06:00] VITALS: BP 143/70; TEMP 98.2; O2SAT 95
[2023-02-21] MEDS: DANTROLENE 25 MG CAP PO SCH ×2 (06:51→14:17)
[2023-02-21] MEDS: tiZANidine 4 MG TAB PO SCH ×2 (06:52→12:20)
[2023-02-21] MEDS: oxyCODONE 5MG TAB PO SCH ×2 (06:52→12:21)
[2023-02-21] MEDS: LACTOBACILLUS ACIDOPHILUS CAP (BACID) PO SCH (08:34)
[2023-02-21] MEDS: CitaloPRAM (CeleXA) 20 MG TAB PO SCH (08:34)
[2023-02-21] MEDS: levETIRAcetam 250MG TABLET (KEPPRA) PO SCH (08:34)
[2023-02-21] MEDS: ACETAMINOPHEN 500 MG TAB PO SCH ×2 (08:34→15:54)
[2023-02-21] MEDS: GABAPENTIN 300 MG CAP PO SCH ×2 (08:34→15:54)
[2023-02-21] MEDS: DOCUSATE SODIUM 100MG CAPSULE PO SCH (08:34)
[2023-02-21] MEDS: DICLOFENAC EPOLAMINE 1.3% PATCH TOP SCH (08:35)
[2023-02-21] MEDS: PANTOPRAZOLE 40MG TAB (PROTONIX) PO SCH (08:36)
[2023-02-21] MEDS ORDERED: DANT25CA PO (10:20)
[2023-02-21] MEDS ORDERED: RAPA8CAP4 PO (10:20)
[2023-02-21] MEDS ORDERED: KEPP1TAB PO (10:20)
[2023-02-21] MEDS ORDERED: GABA-282 PO (10:20)
[2023-02-21] MEDS ORDERED: TIZA10TA PO (10:20)
[2023-02-21] MEDS ORDERED: CITA20TA7 PO (10:20)
[2023-02-21] MEDS ORDERED: OXYC-517 PO (10:20)
[2023-02-21] MEDS: BISACODYL 10MG SUPP PR PRN (12:53)
[2023-02-21 14:00] VITALS: BP 134/78; TEMP 98.6; O2SAT 95
[2023-02-21] MEDS ORDERED: FLEET ENEMA PR ONE (15:00)
== END 2023-02-21 17:10 | disposition home health service (06) | DRG 560 ==
LOC: M PM&R 15:55
PROVIDERS: ADMIT Physical Medicine & Rehabilitation; ATTEND Physical Medicine & Rehabilitation
DX: S72.141D Displaced intertrochanteric fracture of right femur, subsequent encounter for closed fracture with routine healing (principal); N39.0 Urinary tract infection, site not specified; Z99.3 Dependence on wheelchair; N40.0 Benign prostatic hyperplasia without lower urinary tract symptoms; K59.00 Constipation, unspecified; E78.5 Hyperlipidemia, unspecified; R26.89 Other abnormalities of gait and mobility; F32.A Depression, unspecified; R48.2 Apraxia; R56.9 Unspecified convulsions; M54.9 Dorsalgia, unspecified; G89.29 Other chronic pain; Z74.09 Other reduced mobility; Z74.1 Need for assistance with personal care; D72.829 Elevated white blood cell count, unspecified; E66.9 Obesity, unspecified; W05.0XXA Fall from non-moving wheelchair, initial encounter; Y92.094 Garage of other non-institutional residence as the place of occurrence of the external cause; Z87.820 Personal history of traumatic brain injury; Z79.899 Other long term (current) drug therapy; Z86.69 Personal history of other diseases of the nervous system and sense organs

== ENCOUNTER → 2023-03-09 | Outpatient (CLI) | payer MEDICARE, OTHER ==
[~2023-03-09] MED LIST changes: +DANT25CA PO; +GABA-282 PO; +OXYC-517 PO; +TIZA10TA PO
== END ==
LOC: M SOG 09:05
PROVIDERS: ATTEND Physician Assistant
DX: S72.141A Displaced intertrochanteric fracture of right femur, initial encounter for closed fracture (principal); Z53.8 Procedure and treatment not carried out for other reasons

== ENCOUNTER → 2023-03-15 | Outpatient (CLI) | payer MEDICARE, OTHER | LOC: M RAD 11:09 | PROVIDERS: ATTEND Physician Assistant | DX: S72.141A Displaced intertrochanteric fracture of right femur, initial encounter for closed fracture (principal); X58.XXXA Exposure to other specified factors, initial encounter; Y92.9 Unspecified place or not applicable; Y93.9 Activity, unspecified; Y99.9 Unspecified external cause status ==

== ENCOUNTER → 2023-03-16 | Outpatient (REF) | payer MEDICARE, OTHER ==
[2023-03-16 13:16] LABS: APPEARANCE, URINE CLOUDY (CLEAR); BACTERIA, URINE AUTO 1+ (NEGATIVE); BILIRUBIN, URINE AUTO NEGATIVE (NEGATIVE); BLOOD, URINE BLOOD 1+ (NEGATIVE); COLOR, URINE YELLOW (YELLOW); GLUCOSE, URINE (UA) AUTO NEGATIVE (NEGATIVE); KETONE, URINE AUTO NEGATIVE (NEGATIVE); LEUKOCYTE ESTERASE, URINE AUTO 3+ (NEGATIVE); MUCUS, URINE SMALL (NEGATIVE); NITRITE, URINE AUTO NEGATIVE (NEGATIVE); PROTEIN, URINE AUTO 1+ mg/dL (NEGATIVE); RBC, URINE AUTO 7 /HPF (0-3); SPECIFIC GRAVITY URINE AUTO 1.017 (1.002-1.035); SQUAMOUS EPITHELIAL CELL UR AU 1 /HPF (0-6); UROBILINOGEN, URINE AUTO 0.2 mg/dL (0.0-2.0); WBC, URINE AUTO TNTC /HPF (0-3)
== END ==
LOC: M LAB REF 12:27
PROVIDERS: ATTEND Nurse Practitioner Family
DX: R35.0 Frequency of micturition (principal)

== ENCOUNTER → 2023-05-14 | Outpatient (REF) | payer MEDICARE, OTHER ==
[2023-05-14 20:35] LABS: APPEARANCE, URINE CLOUDY (CLEAR); BACTERIA, URINE AUTO NEGATIVE (NEGATIVE); BILIRUBIN, URINE AUTO NEGATIVE (NEGATIVE); BLOOD, URINE BLOOD 1+ (NEGATIVE); COLOR, URINE YELLOW (YELLOW); GLUCOSE, URINE (UA) AUTO NEGATIVE (NEGATIVE); KETONE, URINE AUTO NEGATIVE (NEGATIVE); LEUKOCYTE ESTERASE, URINE AUTO 3+ (NEGATIVE); MUCUS, URINE SMALL (NEGATIVE); NITRITE, URINE AUTO NEGATIVE (NEGATIVE); PROTEIN, URINE AUTO 1+ mg/dL (NEGATIVE); RBC, URINE AUTO 12 /HPF (0-3); SPECIFIC GRAVITY URINE AUTO 1.017 (1.002-1.035); SQUAMOUS EPITHELIAL CELL UR AU 1 /HPF (0-6); UROBILINOGEN, URINE AUTO 0.2 mg/dL (0.0-2.0); WBC, URINE AUTO 94 /HPF (0-3)
== END ==
LOC: M LAB REF 20:14
PROVIDERS: ATTEND Nurse Practitioner Family
DX: R30.0 Dysuria (principal)

== ENCOUNTER → 2023-07-18 | Outpatient (CLI) | payer MEDICARE, OTHER | LOC: M WUC 08:56 | PROVIDERS: ATTEND Urology | DX: N40.1 Benign prostatic hyperplasia with lower urinary tract symptoms (principal) ==

== ENCOUNTER → 2023-07-18 | Outpatient (CLI) | payer MEDICARE, OTHER ==
[2023-07-18 13:18] LABS: HEMOGLOBIN A1c 5.4 % (4.0-6.0)
[2023-07-18 13:48] LABS: ALBUMIN 3.4 G/DL (3.2-5.2); ALKALINE PHOSPHATASE 68 U/L (46-116); ALT/SGPT 12 U/L (7.0-40); AST/SGOT 11 U/L (<34); BILIRUBIN,TOTAL 0.4 MG/DL (0.3-1.2); BLOOD UREA NITROGEN 27 MG/DL (9-23); CALCIUM LEVEL 8.8 MG/DL (8.3-10.6); CARBON DIOXIDE LEVEL 32 MMOL/L (20-31); CHLORIDE LEVEL 104 MMOL/L (98-107); CHOLESTEROL LEVEL 143 MG/DL (<200); CREATININE FOR GFR 1.07 MG/DL (0.70-1.30); GLOMERULAR FILTRATION RATE > 60.0 (>42); GLUCOSE, FASTING 92 MG/DL (74-106); POTASSIUM SERUM 3.8 MMOL/L (3.5-5.1); SODIUM LEVEL 142 MMOL/L (136-145); TRIGLYCERIDES LEVEL 147 MG/DL (<150)
[2023-07-18 18:39] LABS: CHOLESTEROL RISK RATIO 3.97 (<5); LDL CHOLESTEROL 77.6 MG/DL (<100)
== END ==
LOC: M WUC 08:53
PROVIDERS: ATTEND Nurse Practitioner Family
DX: R73.03 Prediabetes (principal); E55.9 Vitamin D deficiency, unspecified; N40.1 Benign prostatic hyperplasia with lower urinary tract symptoms; Z79.899 Other long term (current) drug therapy

== ENCOUNTER → 2023-08-20 | Outpatient (REF) | payer MEDICARE, OTHER ==
[2023-08-20 18:25] LABS: APPEARANCE, URINE CLOUDY (CLEAR); BACTERIA, URINE AUTO 1+ (NEGATIVE); BILIRUBIN, URINE AUTO NEGATIVE (NEGATIVE); BLOOD, URINE BLOOD 2+ (NEGATIVE); CALCIUM OXALATE CRYSTALS MODERATE; COLOR, URINE YELLOW (YELLOW); GLUCOSE, URINE (UA) AUTO NEGATIVE (NEGATIVE); KETONE, URINE AUTO NEGATIVE (NEGATIVE); LEUKOCYTE ESTERASE, URINE AUTO 3+ (NEGATIVE); MUCUS, URINE SMALL (NEGATIVE); NITRITE, URINE AUTO NEGATIVE (NEGATIVE); PROTEIN, URINE AUTO 1+ mg/dL (NEGATIVE); RBC, URINE AUTO 13 /HPF (0-3); SPECIFIC GRAVITY URINE AUTO 1.019 (1.002-1.035); SQUAMOUS EPITHELIAL CELL UR AU 1 /HPF (0-6); TRANSITIONAL EPITHELIAL AUTO <1 /HPF; UROBILINOGEN, URINE AUTO 0.2 mg/dL (0.0-2.0); WBC, URINE AUTO TNTC /HPF (0-3)
== END ==
LOC: M LAB REF 18:03
PROVIDERS: ATTEND Nurse Practitioner Family
DX: R30.0 Dysuria (principal)

== ENCOUNTER 2023-09-27 09:14 | Outpatient (RCR) | payer MEDICARE, OTHER | END 2023-09-30 | LOC: M PT 09:14 | PROVIDERS: ATTEND Nurse Practitioner Family | DX: S72.101D Unspecified trochanteric fracture of right femur, subsequent encounter for closed fracture with routine healing (principal); R26.2 Difficulty in walking, not elsewhere classified ==

== ENCOUNTER 2023-10-29 12:00 | Outpatient (RCR) | payer MEDICARE, OTHER | END 2023-10-31 | LOC: M PT 12:00 | PROVIDERS: ATTEND Nurse Practitioner Family | DX: S72.101D Unspecified trochanteric fracture of right femur, subsequent encounter for closed fracture with routine healing (principal); R26.2 Difficulty in walking, not elsewhere classified ==

== ENCOUNTER 2023-11-19 09:37 | Outpatient (RCR) | payer MEDICARE, OTHER | END 2023-11-29 | LOC: M PT 09:37 | PROVIDERS: ATTEND Nurse Practitioner Family | DX: S72.101D Unspecified trochanteric fracture of right femur, subsequent encounter for closed fracture with routine healing (principal); R26.2 Difficulty in walking, not elsewhere classified ==

== ENCOUNTER → 2024-06-13 | Outpatient (CLI) | payer MEDICARE, OTHER ==
[2024-06-13 09:47] LABS: BASO # 0.1 10^3/uL (0.0-0.2); BASO % 0.8 % (0.0-1.0); EOS # 0.1 10^3/uL (0.0-0.5); EOS % 1.8 % (0.0-3.0); HEMATOCRIT 46.3 % (42.0-52.0); HEMOGLOBIN 15.1 g/dl (13.5-17.5); LYMPH # 1.9 10^3/uL (1.5-5.0); LYMPH % 24.5 % (24.0-44.0); MEAN CORPUSCULAR HEMOGLOBIN 28.9 pg (27.0-33.0); MEAN CORPUSCULAR HGB CONC 32.6 g/dl (32.0-36.5); MEAN CORPUSCULAR VOLUME 88.5 fl (80.0-96.0); MONO # 0.6 10^3/uL (0.0-0.8); MONO % 7.4 % (2.0-8.0); NEUTROPHILS # 5.1 10^3/uL (1.5-8.5); NEUTROPHILS % 65.2 % (36.0-66.0); PLATELET COUNT, AUTOMATED 226 10^3/uL (150-450); RED BLOOD COUNT 5.23 10^6/uL (4.30-6.10); WHITE BLOOD COUNT 7.8 10^3/uL (4.0-10.0)
[2024-06-13 10:14] LABS: HEMOGLOBIN A1c 5.6 % (4.0-6.0)
[2024-06-13 10:30] LABS: ALBUMIN 3.5 G/DL (3.2-5.2); ALKALINE PHOSPHATASE 62 U/L (46-116); ALT/SGPT 16 U/L (7.0-40); AST/SGOT 10 U/L (<34); BILIRUBIN,TOTAL 0.5 MG/DL (0.3-1.2); BLOOD UREA NITROGEN 26 MG/DL (9-23); CALCIUM LEVEL 8.9 MG/DL (8.3-10.6); CARBON DIOXIDE LEVEL 28 MMOL/L (20-31); CHLORIDE LEVEL 107 MMOL/L (98-107); CREATININE FOR GFR 1.06 MG/DL (0.70-1.30); GLOMERULAR FILTRATION RATE > 60.0 (>42); GLUCOSE, FASTING 95 MG/DL (74-106); SODIUM LEVEL 140 MMOL/L (136-145)
[2024-06-13 10:32] LABS: TOTAL 25(OH) VITAMIN D 36.5 NG/ML (20.0-100.0)
== END ==
LOC: M WUC 08:06
PROVIDERS: ATTEND Nurse Practitioner Family
DX: E55.9 Vitamin D deficiency, unspecified (principal); R73.03 Prediabetes

== ENCOUNTER → 2024-07-17 | Outpatient (CLI) | payer MEDICARE, OTHER ==
[~2024-07-17] MED LIST changes: +GABA-1172 PO; -GABA-282 PO
== END ==
LOC: M WUC 08:32
PROVIDERS: ATTEND Urology
DX: N40.1 Benign prostatic hyperplasia with lower urinary tract symptoms (principal)

== ENCOUNTER 2025-06-10 09:02 | Inpatient (IN) | payer MEDICARE, OTHER ==
[~2025-06-10] VITALS: Ht 180.3 cm; Wt 105.7 kg
[~2025-06-10 09:02] MED LIST changes: -PRED50TA PO; +PRED50TA57 PO
[2025-06-10 10:36] LABS: VENOUS BASE EXCESS 2.8 (-2.0-2.0); VENOUS HCO3 27.3 MMOL/L (23.0-27.0); VENOUS O2 SATURATION 91.3 % (60.0-80.0); VENOUS PARTIAL PRESSURE CO2 41.7 mmHg (38.0-50.0); VENOUS PARTIAL PRESSURE O2 59.6 mmHg (30.0-50.0); VENOUS PH 7.434 UNITS (7.330-7.430); VENOUS STANDARD HCO3 26.7 MMOL/L; VENOUS TOTAL CO2 28.6 MMOL/L (24.0-28.0)
[2025-06-10 10:42] LABS: BASO # 0.0 10^3/uL (0.0-0.2); BASO % 0.3 % (0.0-1.0); EOS # 0.0 10^3/uL (0.0-0.5); EOS % 0.3 % (0.0-3.0); LYMPH # 1.8 10^3/uL (1.5-5.0); LYMPH % 13.5 % (24.0-44.0); MONO # 1.8 10^3/uL (0.0-0.8); MONO % 13.5 % (2.0-8.0); NEUTROPHILS # 9.5 10^3/uL (1.5-8.5); NEUTROPHILS % 71.8 % (36.0-66.0); PLATELET COUNT, AUTOMATED 222 10^3/uL (150-450)
[2025-06-10 10:53] LABS: INR 1.16
[2025-06-10 11:07] LABS: KETONE, URINE AUTO RFX NEGATIVE (NEGATIVE); LEUKOCYTE ESTERASE UR AUTO RFX 3+ (NEGATIVE); MUCUS, URINE RFX SMALL (NEGATIVE); NITRITE, URINE AUTO RFX NEGATIVE (NEGATIVE); RBC, URINE AUTO RFX 153 /HPF (0-3); SQUAM EPITHELIAL CELL UR AURFX 0 /HPF (0-6); WBC, URINE AUTO RFX TNTC /HPF (0-3)
[2025-06-10 11:31] LABS: ALT/SGPT 17.0 U/L (7.0-40); AST/SGOT 31.0 U/L (<34); CALCIUM LEVEL 8.9 MG/DL (8.3-10.6); CARBON DIOXIDE LEVEL 27.0 MMOL/L (20-31); CHLORIDE LEVEL 106.0 MMOL/L (98-107); CREATININE FOR GFR 1.04 MG/DL (0.70-1.30); GLOMERULAR FILTRATION RATE 74.0 (>42); POTASSIUM SERUM 4.6 MMOL/L (3.5-5.1); SODIUM LEVEL 144.0 MMOL/L (136-145)
[2025-06-10] MEDS ORDERED: PROBCAP14 PO (12:14)
[2025-06-10] MEDS ORDERED: SANT250O8 TOP (12:14)
[2025-06-10] MEDS ORDERED: LEVE500T5 PO (12:14)
[2025-06-10] MEDS ORDERED: SILO8CAP3 PO (12:14)
[2025-06-10] MEDS ORDERED: ACET-897 PO (12:14)
[2025-06-10] MEDS ORDERED: HOME MED LIST COMPLETE! XX SCH (12:15)
[2025-06-10] MEDS: cefTRIAXone SOD 2 GM in DEXTROSE 5% (D5W) ADV/MINI-BAG 50 ML IV ONE (12:54)
[2025-06-10] MEDS ORDERED: ACETAMINOPHEN 500 MG TAB PO PRN (13:10)
[2025-06-10] MEDS ORDERED: ISOVUE-370 76% 100 ML VIAL As Ordered ONE (14:31)
[2025-06-10 15:25] LABS: C REACTIVE PROTEIN QUANTITATIV 16.52 MG/DL (<1.0)
[2025-06-10 16:26] LABS: ESTIMATED AVERAGE GLUCOSE 126.0 MG/DL (60-110)
[2025-06-10 17:00] VITALS: BP 138/92; TEMP 98.1; O2SAT 95
[2025-06-10] MEDS: TAMSULOSIN 0.4 MG CAP PO SCH (20:16)
[2025-06-10 20:26] VITALS: BP 155/86; TEMP 98.6; O2SAT 95
[2025-06-11] VITALS (9 sets, daily range): BP systolic 104–174; BP diastolic 62–93; TEMP 97.3–103.2; O2SAT 90–96
[2025-06-11 06:22] LABS: PLATELET COUNT, AUTOMATED 196 10^3/uL (150-450)
[2025-06-11 06:47] LABS: CALCIUM LEVEL 8.5 MG/DL (8.3-10.6); CARBON DIOXIDE LEVEL 29.0 MMOL/L (20-31); CHLORIDE LEVEL 105.0 MMOL/L (98-107); CHOLESTEROL LEVEL 121.0 MG/DL (<200); CHOLESTEROL RISK RATIO 3.65 (<5); CREATININE FOR GFR 1.12 MG/DL (0.70-1.30); GLOMERULAR FILTRATION RATE 67.7 (>42); LDL CHOLESTEROL 69.3 MG/DL (<100); NON-HDL-C 87.9 MG/DL; POTASSIUM SERUM 3.9 MMOL/L (3.5-5.1); SODIUM LEVEL 146.0 MMOL/L (136-145); TRIGLYCERIDES LEVEL 93.0 MG/DL (<150)
[2025-06-11] MEDS ORDERED: PNEUMOC 21-VAL CONJ-DIP CRM/PF 0.5 ML SYRINGE IM.IMMUN ONE (09:00)
[2025-06-11] MEDS: ENOXAPARIN 40 MG/0.4 ML SYRINGE (J1650 PER 10MG) SC SCH (09:00)
[2025-06-11] MEDS: SANTYL OINT 30GM TOP SCH (09:16)
[2025-06-11] MEDS: CALCIUM/VITAMIN D 500 MG TAB PO SCH (09:17)
[2025-06-11] MEDS: cefTRIAXone SOD 1 GM in DEXTROSE 5% (D5W) ADV/MINI-BAG 50 ML IV SCH (12:19)
[2025-06-11] MEDS ORDERED: MIDAZOLAM INJ 2 MG/2 ML VIAL As Ordered ONE (13:14)
[2025-06-11] MEDS ORDERED: PHENYLephrine 500MCG 5ML (100MCG/ML) SYRINGE As Ordered ONE (13:15)
[2025-06-11] MEDS ORDERED: ACETAMINOPHEN 1000MG/100ML IV BAG As Ordered ONE (13:15)
[2025-06-11] MEDS ORDERED: LIDOCAINE 2% 100 MG/5 ML SDV (FOR ANES.) As Ordered ONE (13:15)
[2025-06-11] MEDS ORDERED: ONDANSETRON 4MG 2ML VIAL As Ordered ONE (13:19)
[2025-06-11] MEDS ORDERED: dexmedeTOMIDine (4 MCG/ML) 200 MCG/50 ML BTL As Ordered ONE (13:21)
[2025-06-11] MEDS: ISOVUE-300 61% 100 ML VIAL As Ordered ONE (14:00)
[2025-06-11] MEDS: ACETAMINOPHEN *IV* 1,000 MG in IV 1 EA IV ONE (20:14)
[2025-06-11] MEDS: AZITHROMYCIN 250 MG TABLET PO SCH (20:18)
[2025-06-11] MEDS ORDERED: ACETAMINOPHEN 325 MG TAB PO PRN (20:35)
[2025-06-11] MEDS ORDERED: VANCOMYCIN HCL 1,000 MG, VIAL MATE ADAPTER 1 EACH in NS 250 ML IV SCH (21:00)
[2025-06-11 21:09] LABS: VENOUS BASE EXCESS 2.1 (-2.0-2.0); VENOUS HCO3 26.7 MMOL/L (23.0-27.0); VENOUS O2 SATURATION 96.2 % (60.0-80.0); VENOUS PARTIAL PRESSURE CO2 41.7 mmHg (38.0-50.0); VENOUS PARTIAL PRESSURE O2 77.8 mmHg (30.0-50.0); VENOUS PH 7.425 UNITS (7.330-7.430); VENOUS STANDARD HCO3 26.3 MMOL/L; VENOUS TOTAL CO2 28.0 MMOL/L (24.0-28.0)
[2025-06-11 21:13] LABS: BASO # 0.0 10^3/uL (0.0-0.2); BASO % 0.3 % (0.0-1.0); EOS # 0.0 10^3/uL (0.0-0.5); EOS % 0.2 % (0.0-3.0); LYMPH # 0.2 10^3/uL (1.5-5.0); LYMPH % 1.3 % (24.0-44.0); MONO # 0.4 10^3/uL (0.0-0.8); MONO % 3.0 % (2.0-8.0); NEUTROPHILS # 13.5 10^3/uL (1.5-8.5); NEUTROPHILS % 94.2 % (36.0-66.0); PLATELET COUNT, AUTOMATED 184 10^3/uL (150-450)
[2025-06-11] MEDS: NS (Normal Saline) 0.9% 1,000 ML IV ONE (21:36)
[2025-06-11 21:38] LABS: ALT/SGPT 23.0 U/L (7.0-40); AST/SGOT 28.0 U/L (<34); CALCIUM LEVEL 8.2 MG/DL (8.3-10.6); CARBON DIOXIDE LEVEL 27.0 MMOL/L (20-31); CHLORIDE LEVEL 105.0 MMOL/L (98-107); CREATININE FOR GFR 1.18 MG/DL (0.70-1.30); GLOMERULAR FILTRATION RATE 63.6 (>42); MAGNESIUM LEVEL 1.6 MG/DL (1.8-2.4); POTASSIUM SERUM 3.6 MMOL/L (3.5-5.1); SODIUM LEVEL 144.0 MMOL/L (136-145)
[2025-06-11] MEDS: IBUPROFEN 800 MG TAB PO PRN (22:12)
[2025-06-11] MEDS: PIPERACILLIN/TAZOBACTAM SOD 4.5 GM in DEXTROSE 5% (D5W) ADV/MINI-BAG 50 ML IV SCH (22:12)
[2025-06-11] MEDS: VANCOMYCIN HCL 2,000 MG, VIAL MATE ADAPTER 1 EACH in NS 500 ML IV ONE (23:38)
[2025-06-12] VITALS (8 sets, daily range): BP systolic 102–147; BP diastolic 58–89; TEMP 97.1–100.2; O2SAT 90–94
[2025-06-12] MEDS: MAGNESIUM OXIDE 400 MG TAB PO ONE (00:06)
[2025-06-12] MEDS: NS 500 ML IV ONE (01:05)
[2025-06-12 04:02] LABS: BASO # 0.1 10^3/uL (0.0-0.2); BASO % 0.3 % (0.0-1.0); EOS # 0.1 10^3/uL (0.0-0.5); EOS % 0.3 % (0.0-3.0); LYMPH # 0.4 10^3/uL (1.5-5.0); LYMPH % 2.4 % (24.0-44.0); MONO # 0.7 10^3/uL (0.0-0.8); MONO % 4.2 % (2.0-8.0); NEUTROPHILS # 15.5 10^3/uL (1.5-8.5); NEUTROPHILS % 91.8 % (36.0-66.0); PLATELET COUNT, AUTOMATED 178 10^3/uL (150-450)
[2025-06-12 04:26] LABS: CALCIUM LEVEL 7.7 MG/DL (8.3-10.6); CARBON DIOXIDE LEVEL 27.0 MMOL/L (20-31); CHLORIDE LEVEL 107.0 MMOL/L (98-107); CREATININE FOR GFR 1.38 MG/DL (0.70-1.30); GLOMERULAR FILTRATION RATE 52.7 (>42); POTASSIUM SERUM 4.1 MMOL/L (3.5-5.1); SODIUM LEVEL 144.0 MMOL/L (136-145)
[2025-06-12] MEDS: VANCOMYCIN HCL 1,500 MG, VIAL MATE ADAPTER 1 EACH in NS 500 ML IV SCH (06:52)
[2025-06-12] MEDS ORDERED: PNEUMOC 21-VAL CONJ-DIP CRM/PF 0.5 ML SYRINGE IM.IMMUN ONE (09:00)
[2025-06-12] MEDS ORDERED: FLUZONE HIGH DOSE (65+) 0.5 ML SYRINGE (25-26) IM.IMMUN ONE (09:00)
[2025-06-13 03:52] VITALS: BP 141/79; TEMP 98.1; O2SAT 93
[2025-06-13] MEDS ORDERED: VANCOMYCIN HCL 1,500 MG, VIAL MATE ADAPTER 1 EACH in NS 500 ML IV SCH (08:00)
[2025-06-13 08:27] VITALS: BP 134/77; TEMP 97.2; O2SAT 92
[2025-06-13 09:16] LABS: PLATELET COUNT, AUTOMATED 163 10^3/uL (150-450)
[2025-06-13 09:27] LABS: CALCIUM LEVEL 8.1 MG/DL (8.3-10.6); CARBON DIOXIDE LEVEL 28.0 MMOL/L (20-31); CHLORIDE LEVEL 106.0 MMOL/L (98-107); CREATININE FOR GFR 1.05 MG/DL (0.70-1.30); GLOMERULAR FILTRATION RATE 73.1 (>42); POTASSIUM SERUM 3.6 MMOL/L (3.5-5.1); SODIUM LEVEL 143.0 MMOL/L (136-145)
[2025-06-13] MEDS: cefTRIAXone SOD 2 GM in DEXTROSE 5% (D5W) ADV/MINI-BAG 50 ML IV SCH (09:34)
[2025-06-13] MEDS: PNEUMOC 21-VAL CONJ-DIP CRM/PF 0.5 ML SYRINGE IM.IMMUN ONE (09:35)
[2025-06-13] MEDS: FLUZONE HIGH DOSE (65+) 0.5 ML SYRINGE (25-26) IM.IMMUN ONE (09:36)
[2025-06-13 11:49] VITALS: BP 134/76; TEMP 97.7; O2SAT 90
[2025-06-13] MEDS: DOCUSATE SODIUM 100 MG CAPSULE PO SCH (14:53)
[2025-06-13] MEDS: MIRALAX *UNIT DOSE* 17 GM PACKET PO SCH (14:53)
[2025-06-13 16:04] VITALS: BP 153/91; TEMP 98.2; O2SAT 92
[2025-06-13 20:48] VITALS: BP 156/90; TEMP 98.2; TEMP 98.7; O2SAT 93
[2025-06-13] MEDS: AZITHROMYCIN 250 MG TABLET PO SCH (21:01)
[2025-06-14 03:40] VITALS: BP 159/88; TEMP 98.4; O2SAT 92
[2025-06-14 07:42] VITALS: BP 157/87; TEMP 98.2; O2SAT 91
[2025-06-14] MEDS ORDERED: AZIT-12 PO (09:06)
[2025-06-14] MEDS ORDERED: CEFD300CAP PO (09:06)
[2025-06-14 09:12] LABS: BASO # 0.0 10^3/uL (0.0-0.2); BASO % 0.5 % (0.0-1.0); EOS # 0.2 10^3/uL (0.0-0.5); EOS % 2.2 % (0.0-3.0); LYMPH # 1.4 10^3/uL (1.5-5.0); LYMPH % 16.4 % (24.0-44.0); MONO # 0.8 10^3/uL (0.0-0.8); MONO % 9.2 % (2.0-8.0); NEUTROPHILS # 6.1 10^3/uL (1.5-8.5); NEUTROPHILS % 71.1 % (36.0-66.0); PLATELET COUNT, AUTOMATED 197 10^3/uL (150-450)
[2025-06-14] MEDS ORDERED: TAMS-18 PO (09:13)
[2025-06-14 09:34] LABS: CALCIUM LEVEL 8.0 MG/DL (8.3-10.6); CARBON DIOXIDE LEVEL 30.0 MMOL/L (20-31); CHLORIDE LEVEL 106.0 MMOL/L (98-107); CREATININE FOR GFR 0.9 MG/DL (0.70-1.30); GLOMERULAR FILTRATION RATE 88.0 (>42); POTASSIUM SERUM 3.6 MMOL/L (3.5-5.1); SODIUM LEVEL 146.0 MMOL/L (136-145)
== END 2025-06-14 11:15 | disposition home or self-care (01) | DRG 856 ==
LOC: M ED 09:02 → EDBD 09:02 → M ED INP 13:10 → M MSPAV 16:49 → OBSVTOIN 06-12 10:24
PROVIDERS: ADMIT Internal Medicine; ATTEND Internal Medicine
PROC: 0T788DZ Dilation of Bilateral Ureters with Intraluminal Device, Via Natural or Artificial Opening Endoscopic (ICD-10-PCS; principal; 2025-06-11 13:00)
DX: T81.44XA Sepsis following a procedure, initial encounter (principal); J18.9 Pneumonia, unspecified organism; N13.6 Pyonephrosis; N39.0 Urinary tract infection, site not specified; R53.1 Weakness; N40.0 Benign prostatic hyperplasia without lower urinary tract symptoms; G40.909 Epilepsy, unspecified, not intractable, without status epilepticus; R59.0 Localized enlarged lymph nodes; Y83.8 Other surgical procedures as the cause of abnormal reaction of the patient, or of later complication, without mention of misadventure at the time of the procedure; E78.5 Hyperlipidemia, unspecified; Z66 Do not resuscitate; Z79.899 Other long term (current) drug therapy; Z99.3 Dependence on wheelchair; Y83.1 Surgical operation with implant of artificial internal device as the cause of abnormal reaction of the patient, or of later complication, without mention of misadventure at the time of the procedure

== ENCOUNTER 2025-06-18 07:31 | Emergency (ER) | payer MEDICARE, OTHER ==
[~2025-06-18 07:31] MED LIST changes: +ACET-897 PO; +AZIT-12 PO; +CEFD300CAP PO; +LEVE500T5 PO; +PROBCAP14 PO; +SANT250O8 TOP; +SILO8CAP3 PO; +TAMS-18 PO
[2025-06-18] MEDS: ACETAMINOPHEN 500 MG TAB PO ONE (12:28)
[2025-06-18 14:10] VITALS: BP 140/88; TEMP 97.2; O2SAT 98
== END 2025-06-18 14:16 | disposition home or self-care (01) ==
LOC: M ED 07:31 → EDBD 07:31 → M ED 14:16
DX: M17.11 Unilateral primary osteoarthritis, right knee (principal); N40.0 Benign prostatic hyperplasia without lower urinary tract symptoms; Z79.1 Long term (current) use of non-steroidal anti-inflammatories (NSAID); Z79.2 Long term (current) use of antibiotics; Z79.899 Other long term (current) drug therapy

== ENCOUNTER → 2025-07-03 | Outpatient (CLI) | payer MEDICARE, OTHER ==
[2025-07-03 09:40] LABS: PLATELET COUNT, AUTOMATED 264 10^3/uL (150-450)
[2025-07-03 10:09] LABS: ALT/SGPT 19.0 U/L (7.0-40); AST/SGOT 15.0 U/L (<34); CALCIUM LEVEL 8.8 MG/DL (8.3-10.6); CARBON DIOXIDE LEVEL 26.0 MMOL/L (20-31); CHLORIDE LEVEL 105.0 MMOL/L (98-107); CREATININE FOR GFR 0.94 MG/DL (0.70-1.30); GLOMERULAR FILTRATION RATE 83.5 (>42); POTASSIUM SERUM 4.2 MMOL/L (3.5-5.1); SODIUM LEVEL 142.0 MMOL/L (136-145)
[2025-07-03 10:48] LABS: APPEARANCE, URINE TURBID (CLEAR); BACTERIA, URINE AUTO 2+ (NEGATIVE); BILIRUBIN, URINE AUTO NEGATIVE (NEGATIVE); BLOOD, URINE BLOOD 3+ (NEGATIVE); GLUCOSE, URINE (UA) AUTO NEGATIVE (NEGATIVE); KETONE, URINE AUTO NEGATIVE (NEGATIVE); LEUKOCYTE ESTERASE, URINE AUTO 2+ (NEGATIVE); MUCUS, URINE MODERATE (NEGATIVE); NITRITE, URINE AUTO NEGATIVE (NEGATIVE); PROTEIN, URINE AUTO 2+ mg/dL (NEGATIVE); RBC, URINE AUTO TNTC /HPF (0-3); SPECIFIC GRAVITY URINE AUTO 1.014 (1.002-1.035); SQUAMOUS EPITHELIAL CELL UR AU 2 /HPF (0-6); UROBILINOGEN, URINE AUTO 0.2 mg/dL (0.0-2.0); WBC, URINE AUTO TNTC /HPF (0-3)
== END ==
LOC: M LAB 08:55
PROVIDERS: ATTEND Urology
DX: N20.1 Calculus of ureter (principal)

== ENCOUNTER 2025-07-06 09:09 | Outpatient (RCR) | payer MEDICARE, OTHER | END 2025-07-31 | LOC: M ST 09:09 | PROVIDERS: ATTEND Nurse Practitioner Family | DX: R13.10 Dysphagia, unspecified (principal) ==

== ENCOUNTER → 2025-07-15 | Outpatient (REF) | payer MEDICARE, OTHER ==
[2025-07-15 15:21] LABS: BASO # 0.1 10^3/uL (0.0-0.2); BASO % 0.7 % (0.0-1.0); EOS # 0.1 10^3/uL (0.0-0.5); EOS % 1.4 % (0.0-3.0); LYMPH # 1.5 10^3/uL (1.5-5.0); LYMPH % 16.2 % (24.0-44.0); MONO # 0.6 10^3/uL (0.0-0.8); MONO % 6.2 % (2.0-8.0); NEUTROPHILS # 6.8 10^3/uL (1.5-8.5); NEUTROPHILS % 75.1 % (36.0-66.0); PLATELET COUNT, AUTOMATED 253 10^3/uL (150-450)
[2025-07-15 15:48] LABS: ALT/SGPT 15.0 U/L (7.0-40); AST/SGOT 15.0 U/L (<34); CALCIUM LEVEL 8.8 MG/DL (8.3-10.6); CARBON DIOXIDE LEVEL 29.0 MMOL/L (20-31); CHLORIDE LEVEL 105.0 MMOL/L (98-107); CREATININE FOR GFR 0.9 MG/DL (0.70-1.30); GLOMERULAR FILTRATION RATE 88.0 (>42); POTASSIUM SERUM 4.0 MMOL/L (3.5-5.1); SODIUM LEVEL 146.0 MMOL/L (136-145)
[2025-07-15 15:50] LABS: TOTAL 25(OH) VITAMIN D 36.4 NG/ML (20.0-100.0)
[2025-07-15 16:13] LABS: ESTIMATED AVERAGE GLUCOSE 128.0 MG/DL (60-110)
== END ==
LOC: M SHH 13:17
PROVIDERS: ATTEND Nurse Practitioner Family
DX: E55.9 Vitamin D deficiency, unspecified (principal); I69.00 Unspecified sequelae of nontraumatic subarachnoid hemorrhage; R73.03 Prediabetes; N40.1 Benign prostatic hyperplasia with lower urinary tract symptoms; Z12.5 Encounter for screening for malignant neoplasm of prostate
CPT/HCPCS: 80053; 80177; 82306; 83036; 85025; G0103

== ENCOUNTER → 2025-07-15 | Outpatient (REF) | payer MEDICARE, OTHER | LOC: M SHH 14:35 | PROVIDERS: ATTEND Physician Assistant Medical | DX: N40.1 Benign prostatic hyperplasia with lower urinary tract symptoms (principal) ==

== ENCOUNTER → 2025-07-31 | Outpatient (REF) | payer MEDICARE, OTHER ==
[~2025-07-31] MED LIST changes: +LEVO1TAB39 PO; +PYRI1TAB5 PO
== END ==
LOC: M SHH 09:59
PROVIDERS: ATTEND Nurse Practitioner Family
DX: R19.7 Diarrhea, unspecified (principal)

== ENCOUNTER → 2025-08-14 | Outpatient (REF) | payer MEDICARE, OTHER ==
[~2025-08-14] MED LIST changes: -LEVO1TAB39 PO; -PYRI1TAB5 PO
== END ==
LOC: M SHH 10:02
PROVIDERS: ATTEND Urology
DX: N39.0 Urinary tract infection, site not specified (principal)

== ENCOUNTER → 2025-08-17 | Outpatient (CLI) | payer MEDICARE, OTHER ==
[~2025-08-17] MED LIST changes: +BARIUM SULFATE 700 MG TABLET As Ordered ONE; +E-Z-PAQUE 96% w/w SUSP 176 GM BTL As Ordered ONE; +VARIBAR NECTAR 40% w/v 240ML SUSP BTL As Ordered ONE; +VARIBAR PUDDING 40% w/v 230ML TUBE As Ordered ONE
== END ==
LOC: M RAD 10:52
PROVIDERS: ATTEND Nurse Practitioner Family
DX: R13.10 Dysphagia, unspecified (principal)

== ENCOUNTER 2025-08-24 06:04 | Day surgery (SDC) | payer MEDICARE, OTHER ==
[~2025-08-24] VITALS: Ht 180.3 cm; Wt 105.2 kg
[~2025-08-24 06:04] MED LIST changes: -BARIUM SULFATE 700 MG TABLET As Ordered ONE; -E-Z-PAQUE 96% w/w SUSP 176 GM BTL As Ordered ONE; -VARIBAR NECTAR 40% w/v 240ML SUSP BTL As Ordered ONE; -VARIBAR PUDDING 40% w/v 230ML TUBE As Ordered ONE
[2025-08-24] MEDS ORDERED: ACETAMINOPHEN 1000MG/100ML IV BAG As Ordered ONE (06:52)
[2025-08-24] MEDS ORDERED: LIDOCAINE 2% 100 MG/5 ML SDV (FOR ANES.) As Ordered ONE (06:52)
[2025-08-24] MEDS ORDERED: ONDANSETRON 4MG/2ML VIAL As Ordered ONE (06:52)
[2025-08-24] MEDS ORDERED: MIDAZOLAM INJ 2 MG/2 ML VIAL As Ordered ONE (06:53)
[2025-08-24] MEDS ORDERED: LR 1,000 ML IV SCH (07:00)
[2025-08-24] MEDS ORDERED: LEVO1TAB39 PO ×2 (07:20→09:20)
[2025-08-24] MEDS: ceFAZolin SOD 2 GM IV ONCE IV ONE (07:26)
[2025-08-24] MEDS: ISOVUE-300 61% 100 ML VIAL As Ordered ONE (07:45)
[2025-08-24] MEDS ORDERED: KETOROLAC 30 MG/ML 1 ML VIAL As Ordered ONE (09:07)
[2025-08-24] MEDS ORDERED: HYDROMORPHONE HCL 0.5 MG/0.5 ML SYRINGE IV PRN (09:10)
[2025-08-24] MEDS ORDERED: MORPHINE 2 MG/ML 1 ML VIAL IV PRN (09:10)
[2025-08-24] MEDS ORDERED: PYRI1TAB5 PO (09:20)
[2025-08-24 10:53] VITALS: BP 121/74; TEMP 97.2; O2SAT 95
== END 2025-08-24 11:27 | disposition home or self-care (01) ==
LOC: M SDC 06:04
PROVIDERS: ATTEND Urology
DX: N20.1 Calculus of ureter (principal); N40.0 Benign prostatic hyperplasia without lower urinary tract symptoms; Z86.69 Personal history of other diseases of the nervous system and sense organs; Z79.899 Other long term (current) drug therapy
CPT/HCPCS: 52332; 52352; 52356; 74420; 82365; C1769; C2617; J0131; J0688; J1885; J2250; J2405; J3010; Q9967

== ENCOUNTER → 2025-09-19 | Outpatient (CLI) | payer MEDICARE, OTHER ==
[~2025-09-19] MED LIST changes: +LEVO1TAB39 PO; +PYRI1TAB5 PO
== END ==
LOC: M RAD 09:05
PROVIDERS: ATTEND Urology
DX: Z96.0 Presence of urogenital implants (principal); N20.0 Calculus of kidney